=== PATIENT | male | born 1940 | race Caucasian/White ===

== ENCOUNTER 2016-12-07 00:31 | Inpatient (IN) | payer MEDICARE ==
[~2016-12-07] VITALS: Ht 177.8 cm; Wt 96.3 kg
[2016-12-07] VITALS (15 sets, daily range): BP systolic 93–131; BP diastolic 45–82; PULSE 66–88; RESP 14–18; TEMP 97.9–99.1; O2SAT 95–98
--- NOTE | 2016-12-07 01:00 | RADRPT ---
EXAM DATE/TIME: 12/07/2016 00:45 [facility] COMPARISON: No previous studies available for comparison. INDICATIONS : Shortness of breath. MEDICAL HISTORY : None. SURGICAL HISTORY : CABG. ENCOUNTER: Initial ACUITY: 1 day PAIN SCORE: 0/10 LOCATION: Bilateral chest FINDINGS: A single view of the chest demonstrates the lungs to be symmetrically aerated without evidence of mas s, infiltrate or effusion. The cardiomediastinal contours are unremarkable. Sternotomy wires are pre sent.. CONCLUSION: No acute disease. Drew Ellington MD on December 07, 2016 at 0:58 Board Certified Radiologist. This report was verified electronically.
[2016-12-07 01:04] LABS: AUTOMATED NEUTROPHIL # 10.7 TH/MM3 (1.8-7.7); BASOPHIL % 0.2 % (0.0-2.0); EOSINOPHIL % 0.2 % (0.0-4.0); HEMATOCRIT 45.4 % (39.0-51.0); HEMO FLAGS DIFF FINAL; LYMPH % 9.2 % (9.0-44.0); LYMPHOCYTE # 1.1 TH/MM3 (1.0-4.8); MEAN CELL VOLUME 91.2 FL (80.0-100.0); NEUT % 87.4 % (16.0-70.0); PLATELET COUNT 171 TH/MM3 (150-450); RED BLOOD COUNT 4.98 MIL/MM3 (4.50-5.90); WHITE BLOOD COUNT 12.2 TH/MM3 (4.0-11.0)
[2016-12-07 01:33] LABS: APTT (PATIENT) 22.6 SEC (24.3-30.1); PROTHROMBIN TIME - PATIENT 11.6 SEC (9.8-11.6)
[2016-12-07 01:36] LABS: ALKALINE PHOSPHATASE 62 U/L (45-117); ALT (GPT) 126 U/L (12-78); ANION GAP 14 MEQ/L (5-15); AST (GOT) 101 U/L (15-37); BICARBONATE 20.3 MEQ/L (21.0-32.0); BLOOD UREA NITROGEN 23 MG/DL (7-18); CHLORIDE 100 MEQ/L (98-107); CREATINE KINASE 197 U/L (39-308); GLOMERULAR FILTRATION RATE 41 ML/MIN (>89); INDIRECT BILIRUBIN 0.7 MG/DL (0.0-0.8); MAGNESIUM 1.7 MG/DL (1.5-2.5); POTASSIUM 4.7 MEQ/L (3.5-5.1); SODIUM (NA) 134 MEQ/L (136-145)
[2016-12-07 01:53] LABS: CKMB 6.2 NG/ML (0.5-3.6)
[2016-12-07] MEDS ORDERED: SODIUM CHLOR 0.9% 1000 ML INJ 1,000 ML IV ONE (02:00)
[2016-12-07] MEDS ORDERED: IODIXANOL 320 MG/ML 10 ML VIAL (for Rad CT) IV ONE (02:20)
[2016-12-07] MEDS ORDERED: METFORMIN HOLD POST IV CONTRAST XX SCH (02:30)
--- NOTE | 2016-12-07 02:58 | RADRPT ---
EXAM DATE/TIME: 12/07/2016 02:10 [facility] COMPARISON: No previous studies available for comparison. INDICATIONS : Near syncope with abdominal pain. IV CONTRAST: 75 cc Visipaque (iodixanol) IV RADIATION DOSE: 10.57 CTDIvol (mGy) MEDICAL HISTORY : None SURGICAL HISTORY : None. ENCOUNTER: Initial ACUITY: 1 day PAIN SCALE: 4/10 LOCATION: abdomen TECHNIQUE: Volumetric scanning was performed using a multi-row detector CT scanner. The data was post processed with a variety of visualization algorithms including full volume maximum intensity projection, multi -planar sliding thin slab reformation, curved planar reformation, and surface rendering techniques. Using automated exposure control and adjustment of the mA and/or kV according to patient size, radiat ion dose was kept as low as reasonably achievable to obtain optimal diagnostic quality images. FINDINGS: LUNGS: There is no consolidation or pneumothorax. No concerning pulmonary nodule is visualized. No pleural fluid is present. MEDIASTINUM: No abnormally enlarged lymph nodes by CT criteria. No axillary or hilar abnormalities are identified. ABDOMEN: The liver and spleen are free of focal defects. The gallbladder and pancreas demonstrate no abnormali ty. The adrenal glands are normal. The kidneys demonstrate no evidence of solid renal mass or hydrone phrosis. No free fluid or abdominal masses are identified. No para-aortic adenopathy is seen. PELVIS: No evidence of free fluid or pelvic mass. No abnormally enlarged inguinal or retroperitoneal lymph no noah are present. The bladder is unremarkable. THORACIC AORTA: The thoracic aortic root is normal with normal branching of the great vessels. There is no evidence of aneurysm or dissection. ABDOMINAL AORTA: The aorta is normal in caliber without aneurysm or dissection. The renal arteries are patent bilater ally. The proximal celiac and superior mesenteric arteries are patent and normal in diameter. PELVIC VESSELS: The internal iliac and external iliac vessels are patent without aneurysm or stenosis. CONCLUSION: Mild atherosclerotic changes most prominent in the abdominal aorta. No evidence of aneurysm, dissecti on or other acute vascular process. Drew Ellington MD on December 07, 2016 at 2:51 Board Certified Radiologist. This report was verified electronically.
[2016-12-07] MEDS ORDERED: ASPIRIN 81 MG CHEW TAB CHEW ONE (03:15)
[2016-12-07] MEDS ORDERED: HEPARIN SODIUM - IV 10,000 UNITS/10 ML VIAL IV ONE (03:45)
--- NOTE | 2016-12-07 04:14 | PD ---
HPI Chief Complaint: Abdominal Pain Time Seen by Provider: 00:34 Travel History International Travel<30 days: No Contact w/Intl Traveler<30days: No Traveled to known affect area: No History of Present Illness HPI Patient is a 76 year old male who comes in after a syncopal episode. He says he was feeling in his usual state of health all day. He went to dinner and when he came back, he began to feel unwell. He says he felt lower abdominal pain. He tried to get to the bathroom, but he says his legs gave out and he was unable to get up. He says he passed out and had a bowel movement in his bed. He says he then became very diaphoretic. His called and he was brought in by EMS. He says he never had any chest pain. He denies fever or chills. PFSH Past Medical History Cardiovascular Problems: Yes Chest Pain: Yes Diabetes: Yes Past Surgical History Coronary Artery Bypass Graft: Yes Social History Tobacco Use: No Allergies-Medications (Allergen,Severity, Reaction): Coded Allergies: No Known Allergies (Unverified , 12/07/16) Reported Meds & Prescriptions Reported Meds & Active Scripts Active Reported [Levocetirzine Dihcl] 5 Mg PO DAILY Glimepiride 2 Mg Tab 2 Mg PO DAILY Take with breakfast or first main meal Omeprazole 20 Mg Tab 20 Mg PO DAILY Losartan (Losartan Potassium) 25 Mg Tab 25 Mg PO DAILY Metformin (Metformin HCl) 500 Mg Tab 500 Mg PO BIDPC With meals Atorvastatin (Atorvastatin Calcium) 20 Mg Tab 20 Mg PO HS Aspirin 81 Mg Chew 81 Mg CHEW DAILY Review of Systems Except as stated in HPI: all other systems reviewed are Neg General / Constitutional: No: Fever, Chills Cardiovascular: No: Chest Pain or Discomfort Respiratory: Positive: Shortness of Breath Gastrointestinal: Positive: Nausea, Vomiting, Abdominal Pain Genitourinary: No: Dysuria Skin: No Change in Pigmentation Neurologic: Positive: Syncope Physical Exam Narrative GENERAL: Awake and alert, in no acute distress. SKIN: Warm and diaphoretic. HEAD: Atraumatic. Normocephalic. EYES: Pupils equal and round. No scleral icterus. ENT: Mucous membranes pink and moist. NECK: Trachea midline. No JVD. CARDIOVASCULAR: Regular rate and rhythm. No murmur appreciated. RESPIRATORY: No accessory muscle use. Clear to auscultation. Breath sounds equal bilaterally. GASTROINTESTINAL: Abdomen soft, non-tender, nondistended. MUSCULOSKELETAL: No obvious deformities. No clubbing. No cyanosis. No edema. NEUROLOGICAL: Awake and alert. No obvious cranial nerve deficits. Motor grossly within normal limits. Normal speech. PSYCHIATRIC: Appropriate mood and affect; insight and judgment normal. Data Data Last Documented VS Vital Signs Date Time Temp Pulse Resp B/P Pulse Ox O2 Delivery O2 Flow Rate FiO2 12/07/16 02:56 85 18 131/65 98 Room Air 12/07/16 00:36 2 12/07/16 00:35 97.9 Orders Basic Metabolic Panel (Bmp) (12/07/16 00:34) Ckmb (Isoenzyme) Profile (12/07/16 00:34) Complete Blood Count With Diff (12/07/16 00:34) Magnesium (Mg) (12/07/16 00:34) Prothrombin Time / Inr (Pt) (12/07/16 00:34) Act Partial Throm Time (Ptt) (12/07/16 00:34) Troponin I (12/07/16 00:34) Chest, Single Ap (12/07/16 00:34) Ecg Monitoring (12/07/16 00:34) Bilateral Bp Monitoring (12/07/16 00:34) Iv Access Insert/Monitor (12/07/16 00:34) Oximetry (12/07/16 00:34) Oxygen Administration (12/07/16 00:34) Cta Thor Abd Aorta W Iv C W3d (12/07/16 00:34) Hepatic Functional Panel (12/07/16 00:34) CKMB (12/07/16 00:35) CKMB% (12/07/16 00:35) Sodium Chlor 0.9% 1000 Ml Inj (Ns 1000 M (12/07/16 02:00) Iodixanol 320 Inj (Rad Ct) (Visipaque 32 (12/07/16 02:20) Aspirin Chew (Aspirin Chew) (12/07/16 03:15) Heparin Infusion DAI.Q1H (12/07/16 03:08) Heparin Inj (Heparin Inj) (12/07/16 09:15) Heparin Inj (Heparin Inj) (12/07/16 09:15) Heparin-D5w Inj (Heparin-D5w Inj) (12/07/16 03:15) Cbc No Diff, Includes Plts (12/10/16 06:00) Act Partial Throm Time (Ptt) (12/07/16 10:08) Occult Blood (Hemoccult) Stool (12/07/16 03:08) Heparin Inj (Heparin Inj) (12/07/16 03:45) Admit Order (Ed Use Only) (12/07/16 ) Insulin Human Regular Inj (Novolin R Inj (12/07/16 04:15) Labs Laboratory Tests Test 12/07/16 00:35 White Blood Count 12.2 TH/MM3 Red Blood Count 4.98 MIL/MM3 Hemoglobin 15.4 GM/DL Hematocrit 45.4 % Mean Corpuscular Volume 91.2 FL Mean Corpuscular Hemoglobin 31.0 PG Mean Corpuscular Hemoglobin 34.0 % Concent Red Cell Distribution Width 14.0 % Platelet Count 171 TH/MM3 Mean Platelet Volume 9.3 FL Neutrophils (%) (Auto) 87.4 % Lymphocytes (%) (Auto) 9.2 % Monocytes (%) (Auto) 3.0 % Eosinophils (%) (Auto) 0.2 % Basophils (%) (Auto) 0.2 % Neutrophils # (Auto) 10.7 TH/MM3 Lymphocytes # (Auto) 1.1 TH/MM3 Monocytes # (Auto) 0.4 TH/MM3 Eosinophils # (Auto) 0.0 TH/MM3 Basophils # (Auto) 0.0 TH/MM3 CBC Comment DIFF FINAL Differential Comment Prothrombin Time 11.6 SEC Prothromb Time International 1.0 RATIO Ratio Activated Partial 22.6 SEC Thromboplast Time Sodium Level 134 MEQ/L Potassium Level 4.7 MEQ/L Chloride Level 100 MEQ/L Carbon Dioxide Level 20.3 MEQ/L Anion Gap 14 MEQ/L Blood Urea Nitrogen 23 MG/DL Creatinine 1.65 MG/DL Estimat Glomerular Filtration 41 ML/MIN Rate Random Glucose 461 MG/DL Calcium Level 8.9 MG/DL Magnesium Level 1.7 MG/DL Total Bilirubin 1.0 MG/DL Direct Bilirubin 0.3 MG/DL Indirect Bilirubin 0.7 MG/DL Aspartate Amino Transf 101 U/L (AST/SGOT) Alanine Aminotransferase 126 U/L (ALT/SGPT) Alkaline Phosphatase 62 U/L Total Creatine Kinase 197 U/L Creatine Kinase MB 6.2 NG/ML Troponin I 0.21 NG/ML Total Protein 6.7 GM/DL Albumin 3.9 GM/DL MDM Medical Decision Making Medical Screen Exam Complete: Yes Emergency Medical Condition: Yes Interpretation(s) ECG shows no sinus rhythm with occasional PVCs. No ST elevation or depression. Differential Diagnosis ACS versus NSTEMI versus STEMI versus electrolyte abnormality versus dissection Narrative Course Patient is a 76-year-old male who comes in after syncopal episode and abdominal pain. Exam shows patient is diaphoretic, abdomen is soft and nontender. IV established, labs sent. Patient connected to the court recording monitor. Labs sent. Labs show an elevated troponin. Glucose is elevated. Patient given IV fluids and insulin. CTA shows no evidence of dissection. Patient given aspirin and started on heparin. Dr. Cabral consult it for cardiology. Patient admitted for further management. Diagnosis Primary Impression: NSTEMI (non-ST elevated myocardial infarction) Admitting Information Admitting Physician Requests: Admit Elidia Martin MD Dec 07, 2016 04:14
[2016-12-07] MEDS ORDERED: ONDANSETRON HCL 4 MG/2 ML VIAL IVP PRN (04:15)
[2016-12-07] MEDS ORDERED: INSULIN HUMAN REGULAR 1,000 UNITS/10 ML VIAL SQ ONE (04:15)
[2016-12-07] MEDS ORDERED: ACETAMINOPHEN 325 MG TAB PO PRN (04:15)
[2016-12-07] MEDS ORDERED: GLUCAGON 1 MG/ML VIAL OTHER PRN (04:15)
[2016-12-07] MEDS ORDERED: DEXTROSE 50% IN WATER 50 ML VIAL(D50) IV PUSH PRN (04:15)
[2016-12-07] MEDS ORDERED: ACETAMINOPHEN/HYDROcodone 325 MG/5 MG TAB PO PRN (04:15)
[2016-12-07] MEDS ORDERED: BISACODYL 10 MG SUPP PR PRN (04:15)
[2016-12-07] MEDS ORDERED: MORPHINE SULFATE 4 MG/ML INJ IV PRN (04:15)
[2016-12-07] MEDS ORDERED: SODIUM CHLORIDE 0.9% FLUSH 5 ML FLUSH FLUSH PRN (04:15)
[2016-12-07] MEDS: HEPARIN-D5W INJ 250 ML IV SCH (04:25)
[2016-12-07] MEDS ORDERED: PILL SPLITTER OTHER PRN (04:30)
[2016-12-07] MEDS ORDERED: ATOR20TA15 PO (04:36)
[2016-12-07] MEDS ORDERED: METF500T PO ×2 (04:36)
[2016-12-07] MEDS ORDERED: LOSA25TA PO (04:36)
[2016-12-07] MEDS ORDERED: ASPI81CH CHEW (04:36)
[2016-12-07] MEDS ORDERED: OMEP20TA PO (04:36)
[2016-12-07] MEDS ORDERED: LEVOTAB PO (04:36)
[2016-12-07] MEDS ORDERED: LEVOCETIRIZINE PO (04:43)
[2016-12-07] MEDS ORDERED: GLIM2TAB PO (04:43)
--- NOTE | 2016-12-07 05:17 | HHI.HP ---
[facility] No Primary Care Physician Admission Diagnosis NSTEMI Diagnoses: (1) NSTEMI (non-ST elevated myocardial infarction) Diagnosis: Principal (2) Renal insufficiency Diagnosis: Principal (3) DM (diabetes mellitus) Diagnosis: Principal Travel History International Travel<30 Days: No Contact w/Intl Traveler <30 Da: No Traveled to Known Affected Are: No History of Present Illness This is a 76-year-old male with a PMH of HTN, Hyperlipidemia and DM who is brought to the ER by EMS after syncopal episode. Pt had been lying in bed when he had acute chest pain, diaphoresis and syncopal event. Apparently had fecal incontinence, however no convulsions noted. On arrival, BP 129/82, HR 88, O2 sat 98% on RA, Afebrile. WBC 12.2. Creatinine 1.65, no previous labs for comparison. BS 461. AST 101, ALT 126. Troponin 0.21. CXR w/ no acute findings. CTA Aorta negative for dissection or aneurysm. Dr. Cabral consulted by ER physician, recommendation for Heparin gtt, will evaluate in am. Review of Systems Except as stated in HPI: all other systems reviewed are Neg ROS: 14 point review of systems otherwise negative. Past Family Social History Past Medical History PMH: HTN, Hyperlipidemia and DM Past Surgical History PAST SURGICAL HISTORY: None Allergies: Coded Allergies: No Known Allergies (Unverified , 12/07/16) Family History PAST FAMILY HISTORY: Reviewed, positive for DM Social History PAST SOCIAL HISTORY: Negative for alcohol, tobacco or drugs. Physical Exam Vital Signs Vital Signs Date Time Temp Pulse Resp B/P Pulse Ox O2 Delivery O2 Flow Rate FiO2 12/07/16 05:02 77 18 111/68 98 Room Air 12/07/16 02:56 85 18 131/65 98 Room Air 12/07/16 00:36 99 Nasal Cannula 2 12/07/16 00:35 97.9 88 18 129/82 98 Room Air Physical Exam PE: GENERAL: Elderly male in no acute distress. HEENT: PERRLA, EOMI. No scleral icterus or conjunctival pallor. No lid lag or facial droop. CARDIOVASCULAR: Regular rate and rhythm. No obvious murmurs to auscultation. No chest tenderness to palpation. RESPIRATORY: No obvious rhonchi or wheezing. Clear to auscultation. Breath sounds equal bilaterally. GASTROINTESTINAL: Abdomen soft, non-tender, nondistended. BS normal. MUSCULOSKELETAL: Extremities without clubbing, cyanosis, or edema. No obvious deformities. NEUROLOGICAL: Awake, alert and oriented x4. No focal neurologic deficits. Moving both upper and lower extremities spontaneously. Laboratory Laboratory Tests Test 12/07/16 00:35 White Blood Count 12.2 Red Blood Count 4.98 Hemoglobin 15.4 Hematocrit 45.4 Mean Corpuscular Volume 91.2 Mean Corpuscular Hemoglobin 31.0 Mean Corpuscular Hemoglobin 34.0 Concent Red Cell Distribution Width 14.0 Platelet Count 171 Mean Platelet Volume 9.3 Neutrophils (%) (Auto) 87.4 Lymphocytes (%) (Auto) 9.2 Monocytes (%) (Auto) 3.0 Eosinophils (%) (Auto) 0.2 Basophils (%) (Auto) 0.2 Neutrophils # (Auto) 10.7 Lymphocytes # (Auto) 1.1 Monocytes # (Auto) 0.4 Eosinophils # (Auto) 0.0 Basophils # (Auto) 0.0 CBC Comment DIFF FINAL Differential Comment Prothrombin Time 11.6 Prothromb Time International 1.0 Ratio Activated Partial 22.6 Thromboplast Time Sodium Level 134 Potassium Level 4.7 Chloride Level 100 Carbon Dioxide Level 20.3 Anion Gap 14 Blood Urea Nitrogen 23 Creatinine 1.65 Estimat Glomerular Filtration 41 Rate Random Glucose 461 Calcium Level 8.9 Magnesium Level 1.7 Total Bilirubin 1.0 Direct Bilirubin 0.3 Indirect Bilirubin 0.7 Aspartate Amino Transf 101 (AST/SGOT) Alanine Aminotransferase 126 (ALT/SGPT) Alkaline Phosphatase 62 Total Creatine Kinase 197 Creatine Kinase MB 6.2 Troponin I 0.21 Total Protein 6.7 Albumin 3.9 Result Diagram: 12/07/163412/07/1634 Assessment and Plan Problem List: (1) NSTEMI (non-ST elevated myocardial infarction) ICD Code: I21.4 Status: Acute (2) Renal insufficiency ICD Code: N28.9 Status: Acute (3) DM (diabetes mellitus) ICD Code: E11.9 Status: Acute Assessment and Plan A/P: 1. NSTEMI: acute episode of chest pain, diaphoresis, syncope. Trop 0.21, EKG w/ no acute ischemia. Admit to [facility] for further cardiac evaluation, check serial cardiac enzymes, ASA, Statin, B-Thaddeus. Dr. Cabral consulted by ER physician, started on Heparin gtt and will evaluate in am. Currently chest pain free. Morphine/NTG prn. 2. Renal Insufficiency: Creatinine 1.65, no previous labs for comparison. Check U/a, IVF, repeat labs in am. 3. DM: Sliding scale w/ Accu-Cheks. Hold Metformin in light of renal insufficiency and possible cardiac intervention. 4. DVT Prophylaxis: Heparin gtt 5. Social work for d/c planning as needed. 6. Case discussed w/ ER physician at length. Susu Paredes MD Dec 07, 2016 05:17
[2016-12-07] MEDS: SODIUM CHLOR 0.9% 1000 ML INJ 1,000 ML IV SCH ×2 (06:00→17:18)
[2016-12-07 06:15] LABS: BLOOD, URINE NEG (NEG); COMMENT (UR) CULT NOT INDICATED; CULTURE IF INDICATED CULT NOT INDICATED; GLUCOSE,URINE 1000 mg/dL (NEG); HYALINE CAST, URINE 1 /lpf (RARE); KETONE, URINE 10 mg/dL (NEG); MUCUS URINE FEW /lpf (OCC); NITRITE,URINE NEG (NEG); PH, URINE 5.5 (5.0-8.5); SQUAMOUS EPITHELIAL CELL URINE 1 /hpf (0-5); URINE COLOR YELLOW (YELLW/STRAW)
[2016-12-07 07:54] LABS: AUTOMATED NEUTROPHIL # 5.9 TH/MM3 (1.8-7.7); BASOPHIL # 0.1 TH/MM3 (0-0.2); BASOPHIL % 0.6 % (0.0-2.0); EOSINOPHIL # 0.1 TH/MM3 (0-0.4); EOSINOPHIL % 0.8 % (0.0-4.0); HEMATOCRIT 42.3 % (39.0-51.0); HEMO FLAGS DIFF FINAL; LYMPH % 25.4 % (9.0-44.0); LYMPHOCYTE # 2.4 TH/MM3 (1.0-4.8); MEAN CELL VOLUME 88.7 FL (80.0-100.0); MEAN CORPUSCULAR HEMOGLOBIN 30.7 PG (27.0-34.0); MEAN CORPUSCULAR HGB CONC 34.6 % (32.0-36.0); MONO % 9.6 % (0.0-8.0); NEUT % 63.6 % (16.0-70.0); PLATELET COUNT 159 TH/MM3 (150-450); RED BLOOD COUNT 4.77 MIL/MM3 (4.50-5.90); RED CELL DISTRIBUTION WIDTH 13.7 % (11.6-17.2); WHITE BLOOD COUNT 9.3 TH/MM3 (4.0-11.0)
[2016-12-07 08:13] LABS: ALKALINE PHOSPHATASE 60 U/L (45-117); ALT (GPT) 104 U/L (12-78); ANION GAP 10 MEQ/L (5-15); AST (GOT) 54 U/L (15-37); BICARBONATE 23.4 MEQ/L (21.0-32.0); BLOOD UREA NITROGEN 20 MG/DL (7-18); CHLORIDE 107 MEQ/L (98-107); GLOMERULAR FILTRATION RATE 63 ML/MIN (>89); HDL CHOLESTEROL 44.6 MG/DL (40.0-60.0); LDL CHOLESTEROL 80 MG/DL (0-99); SODIUM (NA) 140 MEQ/L (136-145); TOTAL BILIRUBIN ADULT 0.5 MG/DL (0.2-1.0)
[2016-12-07] MEDS: INSULIN ASPART SUPPLEMENTAL SCALE SQ SCH ×4 (08:47→21:00)
[2016-12-07] MEDS: SODIUM CHLORIDE 0.9% FLUSH 5 ML FLUSH FLUSH SCH ×2 (08:48→21:00)
[2016-12-07] MEDS: PRAVASTATIN SOD 40 MG TAB PO SCH (08:49)
[2016-12-07] MEDS: METOPROLOL TARTRATE 25 MG TAB PO SCH ×2 (08:49→21:01)
[2016-12-07] MEDS ORDERED: HEPARIN SODIUM - IV 10,000 UNITS/10 ML VIAL IV PRN ×2 (09:15)
[2016-12-07 11:35] LABS: APTT (PATIENT) 40.8 SEC (24.3-30.1)
--- NOTE | 2016-12-07 13:12 | MB ---
cc: DINORA CABRAL MD DATE OF CONSULTATION: 12/07/2016 REASON FOR CONSULTATION Syncope with elevated troponin. HISTORY OF PRESENT ILLNESS Mr. Lamas is a 76-year-old man who does have a prior history of CABG, hypertension, hyperlipidemia and diabetes. He is visiting from [place] and had been feeling well. He specifically denies any chest pain, jaw pain or dyspnea on exertion. He was out playing golf yesterday and subsequently went out to dinner. After dinner he had severe abdominal pain at about 10 p.m. He says he got up to go to the bathroom felt weak and diaphoretic. He felt like he was going to pass out and remembers falling back in bed. When he regained consciousness he had had a bowel movement in the bed and remained diaphoretic. He called for his and subsequently 911. He notes that he did his blood sugar at home and it was quite high and then when checked by EMS it was even higher. He again reiterated he did not have any cardiac complaints. This is noted to be different from his H&P. The patient remains pain free at this time. Of note, the patient reports he had some dyspnea on exertion last summer. This was apparently associated with an indeterminate troponin and he underwent subsequent nuclear stress testing followed by catheterization. He reports that he was medically managed afterwards. PAST MEDICAL HISTORY Significant for - 1. Previous CABG. 2. Hypertension. 3. Hyperlipidemia. 4. Diabetes. OUTPATIENT MEDICATIONS 1. Aspirin. 2. Glimepiride. 3. Omeprazole. 4. Atorvastatin. 5. Metformin. 6. Losartan. PHYSICAL EXAMINATION VITAL SIGNS: 98.1, 74, 16, 93/45. GENERAL: He is an obese man who is in no apparent distress. NECK: His neck is free from JVD. LUNGS: The lungs are bilaterally clear to auscultation. CARDIOVASCULAR: On cardiovascular examination, he has a normal S1 and S2. I did not appreciate any murmurs, rubs or gallops. ABDOMEN: The abdomen is soft. EXTREMITIES: The extremities are free from edema. EKG shows normal sinus rhythm with a first-degree AV block and nonspecific ST-T wave changes with multifocal PVCs. LABORATORY VALUES Significant for an initial BUN of 23 with a creatinine of 1.6. Today it is 20 with a creatinine of 1.1. His initial random glucose was 461. Troponins are 0.21/1.12. His total CK is 197 with an MB of 6.2. LDL is 80. IMAGING STUDIES Aortic CTA shows mild atherosclerotic changes without evidence of aneurysm or dissection. Chest x-ray shows no acute changes. IMPRESSIONS Syncope - The patient gives a story that is most consistent with a vasovagal episode. He has not had any of his typical cardiac complaints. His telemetry is unremarkable. It is possible that this may have been exacerbated by both his dehydration and hyperglycemia. I would continue observation at this point in this regard. Non-ST elevation UT - At this point, it is not clear if it is a primary or a secondary UT. He did not have any chest, jaw pain or FITZGERALD which is his more classic presentation. He denied that several times to me. It is possible with his underlying ischemic burden that this may have been a secondary UT again related to his profound dehydration and hyperglycemia. In any case, he has had a recent cardiac catheterization over the summer and I would like to get a copy of his report prior to deciding on his management. Renal insufficiency - The patient does still appear prerenal and this may have also factored in with his initial creatinine of 1.6. Hyperlipidemia - The patient will continue on a statin. Dinora Cabral M.D. ANDREW/BJLuz /12:26 PM /12:36 PM QAMAR
[2016-12-07 15:41] LABS: HEMOGLOBIN A1a 1.1 %; HEMOGLOBIN A1b 2.5 %; HEMOGLOBIN Ao 79.6 %; HEMOGLOBIN LA1C 3.5 %; HEMOGLOBIN P3 6.6 %
[2016-12-07 18:12] LABS: APTT (PATIENT) 35.2 SEC (24.3-30.1)
--- NOTE | 2016-12-07 18:17 | EKG ---
Date Performed: 12/07/2016 Time Performed: 00:31:51 PTAGE: 76 years EKG: Sinus rhythm WITH FIRST DEGREE AV BLOCK WITH FREQUENT VENTRICULAR PREMATURE COMPLEXES BORDERLINE LEFT AXIS DEVIAT ION INCOMPLETE RIGHT BUNDLE BRANCH BLOCK NONSPECIFIC T-WAVE ABNORMALITY ABNORMAL ECG NO PREVIOUS TRACING DOCTOR: Roland Montalvo Interpretating Date/Time 12/07/2016 18:13:13
[2016-12-08] VITALS (25 sets, daily range): BP systolic 123–153; BP diastolic 75–96; PULSE 59–80; RESP 12–16; TEMP 97.7–98.5; O2SAT 97–100
[2016-12-08] MEDS: SODIUM CHLOR 0.9% 1000 ML INJ 1,000 ML IV SCH ×3 (00:12→13:59)
[2016-12-08 01:41] LABS: APTT (PATIENT) 41.6 SEC (24.3-30.1)
[2016-12-08] MEDS: HEPARIN-D5W INJ 250 ML IV SCH (05:06)
[2016-12-08] MEDS: INSULIN ASPART SUPPLEMENTAL SCALE SQ SCH ×4 (07:00→20:54)
[2016-12-08] MEDS: ASPIRIN 325 MG TAB PO SCH (08:10)
[2016-12-08] MEDS: PRAVASTATIN SOD 40 MG TAB PO SCH (08:10)
[2016-12-08] MEDS: METOPROLOL TARTRATE 25 MG TAB PO SCH ×2 (08:10→20:42)
[2016-12-08] MEDS: SODIUM CHLORIDE 0.9% FLUSH 5 ML FLUSH FLUSH SCH ×2 (08:11→20:42)
[2016-12-08 09:58] LABS: APTT (PATIENT) 37.4 SEC (24.3-30.1)
--- NOTE | 2016-12-08 11:02 | HHI.PR ---
Subjective Remarks Follow-up non-ST elevation [place] 12/08/16-patient seen and examined, free of chest pain 2 days. No acute event overnight. Objective Vitals Vital Signs Date Time Temp Pulse Resp B/P Pulse Ox O2 Delivery O2 Flow Rate FiO2 12/08/16 08:00 97.8 69 16 153/96 98 12/08/16 07:00 80 12/08/16 06:00 64 12/08/16 05:00 74 12/08/16 04:00 62 12/08/16 03:00 64 12/08/16 03:00 98.5 66 14 139/84 97 12/08/16 02:00 62 12/08/16 01:00 64 12/08/16 00:00 62 12/07/16 23:00 67 12/07/16 23:00 98.2 66 16 116/80 95 12/07/16 22:00 68 12/07/16 21:00 72 12/07/16 20:00 72 12/07/16 19:00 98.2 74 14 109/70 97 12/07/16 19:00 72 12/07/16 18:00 70 12/07/16 17:00 66 12/07/16 16:09 68 12/07/16 15:00 74 12/07/16 15:00 99.1 74 16 119/77 95 12/07/16 11:00 98.1 74 16 93/45 95 12/07/16 11:00 74 I/O 12/07/16 12/07/16 12/07/16 12/08/16 12/08/16 12/08/16 07:00 15:00 23:00 07:00 15:00 23:00 Intake Total 1706 ml 1340 ml Output Total 600 ml 1050 ml Balance 1106 ml 290 ml Intake Oral 600 ml 240 ml IV Total 1106 ml 1100 ml Output Urine Total 600 ml 1050 ml # Bowel Movements 1 0 Result Diagram: 12/07/1672912/07/16729 Imaging Last Impressions Chest X-Ray 12/07/1633 Signed Impressions: Service Date/Time: Wednesday, December 07, 2016 00:45 - CONCLUSION: No acute disease. Drew Ellington MD Aorta CTA 12/07/1633 Signed Impressions: Service Date/Time: Wednesday, December 07, 2016 02:10 - CONCLUSION: Mild atherosclerotic changes most prominent in the abdominal aorta. No evidence of aneurysm, dissection or other acute vascular process. Drew Elilngton MD Objective Remarks GENERAL: NAD SKIN: Warm and dry. HEAD: Normocephalic. EYES: No scleral icterus. No injection or drainage. NECK: Supple, trachea midline. No JVD or lymphadenopathy. CARDIOVASCULAR: Regular rate and rhythm without murmurs, gallops, or rubs. RESPIRATORY: Breath sounds equal bilaterally. No accessory muscle use. GASTROINTESTINAL: Abdomen soft, non-tender, nondistended. MUSCULOSKELETAL: No cyanosis, or edema. BACK: Nontender without obvious deformity. No CVA tenderness. A/P Problem List: (1) NSTEMI (non-ST elevated myocardial infarction) ICD Code: I21.4 Status: Acute (2) Renal insufficiency ICD Code: N28.9 Status: Acute (3) DM (diabetes mellitus) ICD Code: E11.9 Status: Acute Assessment and Plan 76-year-old man with 1. NSTEMI: acute episode of chest pain, diaphoresis, syncope. Aorta CTA with No evidence of aneurysm, dissection .Currently on heparin drip, ASA, Statin, B- Thaddeus and Morphine/NTG prn pending further recommendation from Dr. Cabral . 2-D echo pending Awaiting from medical records 2. Renal Insufficiency: Improving renal indices with gentle IVF, repeat labs in am. Continue to hold all nephrotoxic drugs 3. DM: A1c 7.7 and Good glycemic control with Sliding scale w/ Accu-Cheks. Hold Metformin and glyburide in light of renal insufficiency and possible cardiac intervention. 4. DVT Prophylaxis: Heparin gtt Micah Sanchez MD Dec 08, 2016 11:02
[2016-12-08] MEDS ORDERED: LEVOTAB PO (11:45)
--- NOTE | 2016-12-08 12:02 | PD.CARD.PN ---
Subjective Subjective Remarks Pt without CV complaints Objective Medications Current Medications Medications (Trade) Dose Ordered Sig/Melissa Route Start Time Stop Time Status Last Admin (Heparin Inj) 5,000 units UNSCH PRN IV 12/07/16 09:15 Heparin Sodium (Porcine) 2500 units 2,500 units UNSCH PRN IV 12/07/16 09:15 12/08/16 10:24 Heparin Sodium/ Dextrose 250 ml @ 0 mls/hr TITRATE IV 12/07/16 03:15 12/08/16 05:06 (NS 1000 ml Inj) 1,000 ml @ 100 mls/hr Q10H IV 12/07/16 04:12 12/07/16 17:18 (NS Flush) 2 ml UNSCH PRN FLUSH 12/07/16 04:15 (NS Flush) 2 ml BID FLUSH 12/07/16 09:00 12/08/16 08:11 (Zofran Inj) 4 mg Q6H PRN IVP 12/07/16 04:15 (Dulcolax Supp) 10 mg DAILY PRN [place] 12/07/16 04:15 (Tylenol) 650 mg Q6H PRN PO 12/07/16 04:15 ([place] 5-325 Mg) 1 tab Q4H PRN PO 12/07/16 04:15 (Morphine Inj) 2 mg Q3H PRN IV 12/07/16 04:15 (D50w (Vial) Inj) 25 ml UNSCH PRN IV PUSH 12/07/16 04:15 (Glucagon Inj) 1 mg UNSCH PRN OTHER 12/07/16 04:15 (Lopressor) 12.5 mg Q12HR PO 12/07/16 09:00 12/08/16 08:10 (Pravachol) 40 mg DAILY PO 12/07/16 09:00 12/08/16 08:10 (Pill Splitter) 1 ea UNSCH PRN OTHER 12/07/16 04:30 Miscellaneous Information HOLD METFORMIN FOR... Q24H XX 12/07/16 02:30 12/09/16 02:29 (Aspirin) 325 mg DAILY PO 12/08/16 09:00 12/08/16 08:10 Vital Signs / I&O Vital Signs Date Time Temp Pulse Resp B/P Pulse Ox O2 Delivery O2 Flow Rate FiO2 12/08/16 08:00 97.8 69 16 153/96 98 12/08/16 07:00 80 12/08/16 06:00 64 12/08/16 05:00 74 12/08/16 04:00 62 12/08/16 03:00 64 12/08/16 03:00 98.5 66 14 139/84 97 12/08/16 02:00 62 12/08/16 01:00 64 12/08/16 00:00 62 12/07/16 23:00 67 12/07/16 23:00 98.2 66 16 116/80 95 12/07/16 22:00 68 12/07/16 21:00 72 12/07/16 20:00 72 12/07/16 19:00 98.2 74 14 109/70 97 12/07/16 19:00 72 12/07/16 18:00 70 12/07/16 17:00 66 12/07/16 16:09 68 12/07/16 15:00 74 12/07/16 15:00 99.1 74 16 119/77 95 I/O 12/07/16 12/07/16 12/07/16 12/08/16 12/08/16 12/08/16 07:00 15:00 23:00 07:00 15:00 23:00 Intake Total 1706 ml 1340 ml Output Total 600 ml 1050 ml Balance 1106 ml 290 ml Intake Oral 600 ml 240 ml IV Total 1106 ml 1100 ml Output Urine Total 600 ml 1050 ml # Bowel Movements 1 0 Physical Exam GENERAL: Well developed, well nourished. No acute distress. HEENT: Jugular venous pressure is normal. CHEST: Lungs clear to auscultation bilaterally. Unlabored respiratory effort. CARDIAC: Regular rate and rhythm without S3, S4, or murmur. ABDOMEN: Soft, nontender, no hepatosplenomegaly. Bowel sounds present. EXTREMITIES: No clubbing, cyanosis, or edema. Laboratory Laboratory Tests Test 12/07/16 12/07/16 12/08/16 12/08/16 12:57 17:55 00:55 09:09 Troponin I 1.11 NG/ML Activated Partial 35.2 SEC 41.6 SEC 37.4 SEC Thromboplast Time Assessment and Plan Assessment and Plan Syncope - The patient gives a story that is most consistent with a vasovagal episode. He has not had any of his typical cardiac complaints. His telemetry is unremarkable. It is possible that this may have been exacerbated by both his dehydration and hyperglycemia. I would continue observation at this point in this regard. 12/08/16- no further episodes NSVT- 3, 3 beat episodes last night around 21:00 -on BB, awaiting recent cath Non-ST elevation [place] - At this point, it is not clear if it is a primary or a secondary [place]. He did not have any chest pain or jaw pain which is his more classic presentation. He denied that several times to me. It is possible with his underlying ischemic burden that this may have been a secondary [place] again related to his profound dehydration and hyperglycemia. In any case, he has had a recent cardiac catheterization over the summer and I would like to get a copy of his report prior to deciding on his management. 12/08/16- Pt is asymptomatic, continue present meds -obtained prior record of CABG obtained, but not cath from Jul -try again to get records -check ECHO Renal insufficiency - Hyperlipidemia - The patient will continue on a statin. Antonella Cabral MD Dec 08, 2016 12:02
--- NOTE | 2016-12-08 14:27 | EC ---
Study Study Date:12/08/2016 STUDY CONCLUSIONS SUMMARY - Left ventricle: The cavity size was normal. Wall thickness was normal. Systolic function was moderately reduced. The estimated ejection fraction was in the range of 35% to 40%. Diffuse hypokinesis. - Mitral valve: Mild regurgitation. - Left atrium: The atrium was mildly dilated. - Pulmonary arteries: PA peak pressure: 34mm Hg (S). If LV function is below 40, please consider prescribing an ACEI or ARB or document rationale for non-use. PROCEDURE DATA STUDY STATUS: Elective. Procedure: Transthoracic echocardiography. Image quality was good. Scanning was performed from the parasternal, apical, and subcostal acoustic windows. Study completion: The patient tolerated the procedure well. Transthoracic echocardiography. M-mode, complete 2D, complete spectral Doppler, and color Doppler. Patient status: Inpatient. CARDIAC ANATOMY LEFT VENTRICLE: The cavity size was normal. Wall thickness was normal. Systolic function was moderately reduced. The estimated ejection fraction was in the range of 35% to 40%. Diffuse hypokinesis. AORTIC VALVE: Trileaflet; normal thickness leaflets. Doppler: Transvalvular velocity was within the normal range. There was no stenosis. No regurgitation. AORTA: Aortic root: The aortic root was normal in size. MITRAL VALVE: Mildly thickened leaflets, . Doppler: Transvalvular velocity was within the normal range. There was no evidence for stenosis. Mild regurgitation. LEFT ATRIUM: The atrium was mildly dilated. RIGHT VENTRICLE: The cavity size was normal. Wall thickness was normal. PULMONIC VALVE: Doppler: Transvalvular velocity was within the normal range. There was no evidence for stenosis. No regurgitation. TRICUSPID VALVE: Structurally normal valve. Doppler: Transvalvular velocity was within the normal range. Trace to mild regurgitation. PULMONARY ARTERY: The main pulmonary artery was normal-sized. Systolic pressure was within the normal range. RIGHT ATRIUM: The atrium was normal in size. PERICARDIUM: There was no pericardial effusion. SYSTEMIC VEINS: Inferior vena cava: The vessel was normal in size. BASIC MEASUREMENTS ADULT NORMAL Left ventricle LV internal dimension, ED, chordal level, 48.1 mm 43-52 PLAX LV internal dimension, ES, chordal level, *41 mm 23-38 PLAX Fractional shortening, chordal level, PLAX *15 % >29 LV posterior wall thickness, ED 10.3 mm IVS/LVPW ratio, ED 1.12 <1.3 Ventricular septum Septal thickness, ED 11.5 mm Aortic valve Leaflet separation 24 mm 15-26 Right ventricle RV internal dimension, ED, PLAX 29.2 mm 19-38 BASIC MEASUREMENTS ADULT NORMAL Aortic valve Leaflet separation 24 mm 15-26 Aorta Root diameter, ED 29 mm 20-37 Left atrium Anterior-posterior dimension, ES *55 mm 19-40 LA/aortic root ratio 1.9 DOPPLER MEASUREMENTS ADULT NORMAL Main pulmonary artery Pressure, S *34 mm Hg =30 Mitral valve Peak E-wave velocity 65.2 cm/s Peak A-wave velocity 84.4 cm/s Peak E/A ratio 0.8 Tricuspid valve Regurgitant peak velocity 247 cm/s Peak RV-RA gradient, S 24 mm Hg Maximal regurgitant velocity 247 cm/s Systemic veins Estimated CVP 10 mm Hg Right ventricle RV pressure, S *34 mm Hg <30 LEGEND: Mean values are shown as u=mean value. Asterisk (*) holt values outside specified normal range. Prepared and signed by Antonella Cabral [id number]
[2016-12-09] VITALS (10 sets, daily range): BP systolic 123–147; BP diastolic 87–92; PULSE 54–82; RESP 14–16; TEMP 98; O2SAT 97–98
[2016-12-09 05:03] LABS: BICARBONATE 25.3 MEQ/L (21.0-32.0); POTASSIUM 3.9 MEQ/L (3.5-5.1)
[2016-12-09] MEDS: SODIUM CHLOR 0.9% 1000 ML INJ 1,000 ML IV SCH (06:12)
[2016-12-09] MEDS: INSULIN ASPART SUPPLEMENTAL SCALE SQ SCH (07:00)
[2016-12-09] MEDS: PRAVASTATIN SOD 40 MG TAB PO SCH (08:49)
[2016-12-09] MEDS: METOPROLOL TARTRATE 25 MG TAB PO SCH (08:50)
[2016-12-09] MEDS: ASPIRIN 325 MG TAB PO SCH (08:50)
[2016-12-09] MEDS: SODIUM CHLORIDE 0.9% FLUSH 5 ML FLUSH FLUSH SCH (08:50)
[2016-12-09] MEDS ORDERED: PLAV75TA29 PO (09:32)
[2016-12-09] MEDS ORDERED: CARV3.125 PO (09:32)
--- NOTE | 2016-12-09 09:36 | PD.CARD.PN ---
Subjective Subjective Remarks Pt without CV complaints Objective Medications Current Medications Medications (Trade) Dose Ordered Sig/Melissa Route Start Time Stop Time Status Last Admin (NS 1000 ml Inj) 1,000 ml @ 100 mls/hr Q10H IV 12/07/16 04:12 12/08/16 13:59 (NS Flush) 2 ml UNSCH PRN FLUSH 12/07/16 04:15 (NS Flush) 2 ml BID FLUSH 12/07/16 09:00 12/09/16 08:50 (Zofran Inj) 4 mg Q6H PRN IVP 12/07/16 04:15 (Dulcolax Supp) 10 mg DAILY PRN [place] 12/07/16 04:15 (Tylenol) 650 mg Q6H PRN PO 12/07/16 04:15 ([place] 5-325 Mg) 1 tab Q4H PRN PO 12/07/16 04:15 (Morphine Inj) 2 mg Q3H PRN IV 12/07/16 04:15 (D50w (Vial) Inj) 25 ml UNSCH PRN IV PUSH 12/07/16 04:15 (Glucagon Inj) 1 mg UNSCH PRN OTHER 12/07/16 04:15 (Lopressor) 12.5 mg Q12HR PO 12/07/16 09:00 12/09/16 08:50 (Pravachol) 40 mg DAILY PO 12/07/16 09:00 12/09/16 08:49 (Pill Splitter) 1 ea UNSCH PRN OTHER 12/07/16 04:30 (Aspirin) 325 mg DAILY PO 12/08/16 09:00 12/09/16 08:50 Vital Signs / I&O Vital Signs Date Time Temp Pulse Resp B/P Pulse Ox O2 Delivery O2 Flow Rate FiO2 12/09/16 07:31 98.0 54 16 147/92 98 12/09/16 07:31 54 12/09/16 06:00 54 12/09/16 05:00 54 12/09/16 04:00 56 12/09/16 03:00 98.0 62 14 123/87 97 12/09/16 03:00 54 12/09/16 02:00 68 12/09/16 01:00 60 12/09/16 00:00 56 12/08/16 23:00 59 12/08/16 23:00 97.7 63 12 127/84 97 12/08/16 22:00 60 12/08/16 21:00 62 12/08/16 20:00 64 12/08/16 19:00 80 12/08/16 19:00 97.8 65 12 124/76 97 12/08/16 18:07 67 12/08/16 17:11 60 12/08/16 16:16 62 12/08/16 16:00 98.1 64 16 123/80 99 12/08/16 15:00 64 12/08/16 14:00 80 12/08/16 13:00 70 12/08/16 12:00 64 12/08/16 12:00 97.8 76 16 125/75 100 12/08/16 11:00 64 12/08/16 10:00 64 I/O 12/08/16 12/08/16 12/08/16 12/09/16 12/09/16 12/09/16 07:00 15:00 23:00 07:00 15:00 23:00 Intake Total 1340 ml 2150 ml 1365 ml Output Total 1050 ml 2130 ml 850 ml Balance 290 ml 20 ml 515 ml Intake Oral 240 ml 1100 ml 565 ml IV Total 1100 ml 1050 ml 800 ml Output Urine Total 1050 ml 2130 ml 850 ml # Voids 1 # Bowel Movements 0 1 Physical Exam GENERAL: Well developed, well nourished. No acute distress. HEENT: Jugular venous pressure is normal. CHEST: Lungs clear to auscultation bilaterally. Unlabored respiratory effort. CARDIAC: Regular rate and rhythm without S3, S4, or murmur. ABDOMEN: Soft, nontender, no hepatosplenomegaly. Bowel sounds present. EXTREMITIES: No clubbing, cyanosis, or edema. Laboratory Laboratory Tests Test 12/09/16 03:20 Sodium Level 144 MEQ/L Potassium Level 3.9 MEQ/L Chloride Level 110 MEQ/L Carbon Dioxide Level 25.3 MEQ/L Anion Gap 9 MEQ/L Blood Urea Nitrogen 15 MG/DL Creatinine 0.81 MG/DL Estimat Glomerular Filtration 93 ML/MIN Rate Random Glucose 141 MG/DL Calcium Level 8.3 MG/DL Assessment and Plan Assessment and Plan Syncope - The patient gives a story that is most consistent with a vasovagal episode. He has not had any of his typical cardiac complaints. His telemetry is unremarkable. It is possible that this may have been exacerbated by both his dehydration and hyperglycemia. I would continue observation at this point in this regard. 12/09/16- no further episodes; keep PO fluids around 64 oz a day NSVT- 3, 3 beat episodes last night around 21:00 12/07 -no further episodes Cardiomyopathy- on BB, -restart ARB today as BP was a bit low prior (and renal insufficiency) Non-ST elevation [place] - At this point, it is not clear if it is a primary or a secondary [place]. He did not have any chest pain or jaw pain which is his more classic presentation. He denied that several times to me. It is possible with his underlying ischemic burden that this may have been a secondary [place] again related to his profound dehydration and hyperglycemia. In any case, he has had a recent cardiac catheterization over the summer and I would like to get a copy of his report prior to deciding on his management. 12/08/16- Pt is asymptomatic, continue present meds -obtained prior record of CABG obtained, but not cath from Jul -try again to get records 12/09/16- asymptomatic, asa. add plavix -cath from Jul 2017 shows patent bypass grafts; I did offer cath but he declined which is reasonable given his scenario -ok for d/c Renal insufficiency - resolved with hydration Hyperlipidemia - The patient will continue on a statin. Antonella Cabral MD Dec 09, 2016 09:36
--- NOTE | 2016-12-09 09:41 | HHI.DS ---
Discharge Summary Admission Date Dec 07, 2016 at 4:16 am Discharge Date: Dec 09, 2016 Admitting Diagnosis NSTEMI (1) NSTEMI (non-ST elevated myocardial infarction) ICD Code: I21.4 Diagnosis: Principal (2) DM (diabetes mellitus) ICD Code: E11.9 (3) ALEXANDER (acute kidney injury) ICD Code: N17.9 Diagnosis: Principal Procedures 12/08/2016 - Left ventricle: The cavity size was normal. Wall thickness was normal. Systolic function was moderately reduced. The estimated ejection fraction was in the range of 35% to 40%. Diffuse hypokinesis. - Mitral valve: Mild regurgitation. - Left atrium: The atrium was mildly dilated. - Pulmonary arteries: PA peak pressure: 34mm Hg (S). Brief History - From Admission This is a 76-year-old male with a PMH of HTN, Hyperlipidemia and DM who is brought to the ER by EMS after syncopal episode. Pt had been lying in bed when he had acute chest pain, diaphoresis and syncopal event. Apparently had fecal incontinence, however no convulsions noted. On arrival, BP 129/82, HR 88, O2 sat 98% on RA, Afebrile. WBC 12.2. Creatinine 1.65, no previous labs for comparison. BS 461. AST 101, ALT 126. Troponin 0.21. CXR w/ no acute findings. CTA Aorta negative for dissection or aneurysm. Dr. Cabral consulted by ER physician, recommendation for Heparin gtt, will evaluate in am. CBC/BMP: 12/07/16 0730 12/09/16 0320 Significant Findings Laboratory Tests Test 12/07/16 12/07/16 12/07/16 12/07/16 00:35 05:40 07:30 11:00 White Blood Count 12.2 TH/MM3 (4.0-11.0) Neutrophils (%) (Auto) 87.4 % (16.0-70.0) Neutrophils # (Auto) 10.7 TH/MM3 (1.8-7.7) Activated Partial 22.6 SEC 40.8 SEC Thromboplast Time (24.3-30.1) (24.3-30.1) Sodium Level 134 MEQ/L (136-145) Carbon Dioxide Level 20.3 MEQ/L (21.0-32.0) Blood Urea Nitrogen 23 MG/DL (7-18) 20 MG/DL (7-18) Creatinine 1.65 MG/DL (0.60-1.30) Estimat Glomerular Filtration 41 ML/MIN (>89) 63 ML/MIN (>89) Rate Random Glucose 461 MG/DL 271 MG/DL (74-106) (74-106) Direct Bilirubin 0.3 MG/DL (0.0-0.2) Aspartate Amino Transf 101 U/L (15-37) 54 U/L (15-37) (AST/SGOT) Alanine Aminotransferase 126 U/L (12-78) 104 U/L (12-78) (ALT/SGPT) Creatine Kinase MB 6.2 NG/ML (0.5-3.6) Troponin I 0.21 NG/ML 1.12 NG/ML (0.02-0.05) (0.02-0.05) Urine Glucose (UA) 1000 mg/dL (NEG) Urine Ketones 10 mg/dL (NEG) Urine Mucus FEW /lpf (OCC) Monocytes (%) (Auto) 9.6 % (0.0-8.0) Hemoglobin A1c 7.7 % (4.3-6.0) Total Protein 6.0 GM/DL (6.4-8.2) Test 12/07/16 12/07/16 12/08/16 12/08/16 12:57 17:55 00:55 09:09 Troponin I 1.11 NG/ML (0.02-0.05) Activated Partial 35.2 SEC 41.6 SEC 37.4 SEC Thromboplast Time (24.3-30.1) (24.3-30.1) (24.3-30.1) Test 12/09/16 03:20 Chloride Level 110 MEQ/L (98-107) Random Glucose 141 MG/DL (74-106) Calcium Level 8.3 MG/DL (8.5-10.1) Imaging Last Impressions Chest X-Ray 12/07/16 0034 Signed Impressions: Service Date/Time: Wednesday, December 07, 2016 00:45 - CONCLUSION: No acute disease. Drew Ellington MD Aorta CTA 12/07/16 0034 Signed Impressions: Service Date/Time: Wednesday, December 07, 2016 02:10 - CONCLUSION: Mild atherosclerotic changes most prominent in the abdominal aorta. No evidence of aneurysm, dissection or other acute vascular process. Drew Ellington MD PE at Discharge GENERAL: NAD SKIN: Warm and dry. HEAD: Normocephalic. EYES: No scleral icterus. No injection or drainage. NECK: Supple, trachea midline. No JVD or lymphadenopathy. CARDIOVASCULAR: Regular rate and rhythm without murmurs, gallops, or rubs. RESPIRATORY: Breath sounds equal bilaterally. No accessory muscle use. GASTROINTESTINAL: Abdomen soft, non-tender, nondistended. MUSCULOSKELETAL: No cyanosis, or edema. BACK: Nontender without obvious deformity. No CVA tenderness. Pt update on day of discharge Mr. Lamas is doing well. No acute concerns. He ambulated well without any problems. No chest pain, fever, chills. Pt was advised to drink more fluid and less coffee. Hospital Course Mr. Lamas is a 76-year-old male with a PMH of HTN, Hyperlipidemia and DM who is brought to the ER by EMS after syncopal episode. Pt had been lying in bed when he had acute chest pain, diaphoresis and syncopal event. On arrival, BP 129/82, HR 88, O2 sat 98% on RA, Afebrile. WBC 12.2. Creatinine 1.65 blood glucose 461. His troponins were 0.21, 1.12, 1.11. Patient was started on fluid , insulin for diabetes and started on aspirin and statin and beta krishna. Patient was on losartan at home and was held during admission due to acute kidney injury. Cardiology was consulted. After reviewing cardiac catheterization done about 67 months ago at an outside facility, cardiology decided not to proceed with cardiac catheterization. Medical management was recommended. With IV fluid patient's acute kidney injury also resolved. On discharge patient was continued on statin, losartan. We started patient on carvedilol 3.125 mg twice a day and Plavix 75 mg daily. Patient was also instructed to continue taking aspirin 81 mg a day. He was advised to follow-up with Dr. Cabral in 7-10 days. Pt Condition on Discharge: Good Discharge Disposition: Discharge Home Discharge Time: > 30 minutes Discharge Instructions DIET: Follow Instructions for: Heart Healthy Diet, Diabetic Diet Activities you can perform: Regular-No Restrictions Follow up Referrals: Cardiology - 10 Days with Antonella Cabral MD PCP Follow-up - 1 Week New Medications: Carvedilol (Coreg) 3.125 Mg Tab 3.125 MG PO BID Heart #60 Ref 0 TAB Clopidogrel (Plavix) 75 Mg Tab 75 MG PO DAILY Blood Clot Prevention #30 Ref 0 TAB Continued Medications: Aspirin (Aspirin) 81 Mg Chew 81 MG CHEW DAILY Ref 0 TAB Atorvastatin (Atorvastatin) 20 Mg Tab 20 MG PO HS Cholesterol Management #30 Ref 0 TAB Glimepiride (Glimepiride) 2 Mg Tab 2 MG PO DAILY Take with breakfast or first main meal Blood Sugar Management #30 Ref 0 TAB Levocetirizine (Levocetirizine) 5 Mg Tab 5 MG PO DAILY Allergy Management #30 Ref 0 TAB Losartan (Losartan) 25 Mg Tab 25 MG PO DAILY Blood Pressure Management #30 Ref 0 TAB Metformin (Metformin) 500 Mg Tab 500 MG PO BIDPC With meals Blood Sugar Management #60 Ref 0 TAB Omeprazole (Omeprazole) 20 Mg Tab 20 MG PO DAILY #30 Ref 0 TAB Maribell Pratt DO Dec 09, 2016 9:41 am
== END 2016-12-09 10:36 | disposition home or self-care (01) | DRG 281 ==
LOC: NEPC 00:31 → NEDA 04:16 → HCVR 06:25 → HCIN 15:56
PROVIDERS: ADMIT Hospitalist; ATTEND Hospitalist
DX: I21.4 Non-ST elevation (NSTEMI) myocardial infarction (principal); N17.9 Acute kidney failure, unspecified; I42.9 Cardiomyopathy, unspecified; I47.2 Ventricular tachycardia; E11.65 Type 2 diabetes mellitus with hyperglycemia; E86.0 Dehydration; Z95.1 Presence of aortocoronary bypass graft; I10 Essential (primary) hypertension; R55 Syncope and collapse; R10.32 Left lower quadrant pain; I25.10 Atherosclerotic heart disease of native coronary artery without angina pectoris; E78.5 Hyperlipidemia, unspecified; R15.9 Full incontinence of feces; I44.0 Atrioventricular block, first degree; I70.0 Atherosclerosis of aorta; I34.0 Nonrheumatic mitral (valve) insufficiency
CPT/HCPCS: 71010; 71275; 74174; 80048; 80053; 80061; 80076; 81001; 82550; 82552; 82948; 83036; 83735; 84484; 85025; 85610; 85730; 93005; 93306; 96360; J1644; J1815; J7030; Q9967

== ENCOUNTER 2016-12-12 15:17 | Inpatient (IN) | payer MEDICARE ==
[~2016-12-12] VITALS: Ht 177.8 cm; Wt 94.0 kg
[2016-12-12] VITALS (9 sets, daily range): BP systolic 100–144; BP diastolic 54–96; PULSE 58–197; RESP 14–26; TEMP 97.5–97.8; O2SAT 95–99
[~2016-12-12 15:17] MED LIST: ASPI81CH CHEW; ATOR20TA15 PO; CARV3.125 PO; GLIM2TAB PO; LEVOTAB PO; LOSA25TA PO; METF500T PO; OMEP20TA PO; PLAV75TA29 PO
--- NOTE | 2016-12-12 16:08 | PD ---
HPI Chief Complaint: Cardiac Complaint Time Seen by Provider: 15:44 Travel History International Travel<30 days: No Contact w/Intl Traveler<30days: No Traveled to known affect area: No History of Present Illness HPI This 76-year-old male says that he was at home where he got very short of breath and felt cold and clammy. She had an episode like this last FridayDecember 07. At that time he had a syncopal episode associated with incontinence of stool. He was taken by ambulance to the hospital. His troponin was 0.21 and subsequently jennifer to 1.12. It was thought that he had had an STEMI. He was released with carvedilol and Plavix in addition to his previous medication. He does have a history of diabetes. He is known to have frequent PVCs. He says that today after taking a shower he had an episode where he got very lightheaded and clammy. He broke out in a sweat and he had some pain in his gums. He says was similar to the previous episode except he did not pass out. It lasted for about 10-15 minutes. There was no chest pain. He is still having some mild shortness of breath now. He has no history of lung disease. He stopped smoking many years ago. He had a similar episode last July and was admitted at home in [place]. He had a cardiac catheterization done at that time. PFSH Past Medical History Cancer: No Cardiovascular Problems: Yes High Cholesterol: Yes Chest Pain: Yes Congestive Heart Failure: Yes Diabetes: Yes Patient Takes Glucophage: Yes Endocrine: Yes GERD: Yes Genitourinary: No Hypertension: Yes Immune Disorder: No Musculoskeletal: No Neurologic: Yes Psychiatric: No Reproductive: No Respiratory: No Immunizations Current: Yes Myocardial Infarction: Yes Thyroid Disease: No Triglycerides - High: Yes Tetanus Vaccination: < 5 Years Influenza Vaccination: Yes Past Surgical History Abdominal Surgery: Yes (Diverticulum) Cardiac Surgery: Yes (CABG SEP 2012) Coronary Artery Bypass Graft: Yes Oral Surgery: Yes (TONSILECTOMY) Tonsillectomy: Yes Other Surgery: Yes Social History Alcohol Use: Yes (Occ.) Tobacco Use: No Substance Use: No Allergies-Medications (Allergen,Severity, Reaction): Coded Allergies: No Known Allergies (Unverified , 12/12/16) Reported Meds & Prescriptions Reported Meds & Active Scripts Active Plavix (Clopidogrel Bisulfate) 75 Mg Tab 75 Mg PO DAILY Coreg (Carvedilol) 3.125 Mg Tab 3.125 Mg PO BID Reported Levocetirizine 5 Mg Tab 5 Mg PO DAILY Glimepiride 2 Mg Tab 2 Mg PO DAILY Take with breakfast or first main meal Omeprazole 20 Mg Tab 20 Mg PO DAILY Losartan (Losartan Potassium) 25 Mg Tab 25 Mg PO DAILY Metformin (Metformin HCl) 500 Mg Tab 500 Mg PO BIDPC With meals Atorvastatin (Atorvastatin Calcium) 20 Mg Tab 20 Mg PO HS Aspirin 81 Mg Chew 81 Mg CHEW DAILY Review of Systems General / Constitutional: No: Fever, Chills Eyes: No: Diploplia, Blurred Vision HENT: Positive: Lightheadedness, No: Headaches, Vertigo Cardiovascular: Positive: Palpitations, Tachycardia, No: Chest Pain or Discomfort Respiratory: Positive: Shortness of Breath Gastrointestinal: No: Vomiting, Diarrhea Genitourinary: No: Urgency, Frequency Musculoskeletal: No: Myalgias, Arthralgias Skin: No Rash Neurologic: Positive: Weakness, Dizziness Hematologic/Lymphatic: No: Easy Bruising Physical Exam Narrative GENERAL: Well-developed male SKIN: Warm and dry. HEAD: Atraumatic. Normocephalic. EYES: Pupils equal and round. No scleral icterus. No injection or drainage. ENT: No nasal bleeding or discharge. Mucous membranes pink and moist. NECK: Trachea midline. No JVD. CARDIOVASCULAR: Regular rate and rhythm. No murmur appreciated. RESPIRATORY: No accessory muscle use. Clear to auscultation. Breath sounds equal bilaterally. GASTROINTESTINAL: Abdomen soft, non-tender, nondistended. Hepatic and splenic margins not palpable. MUSCULOSKELETAL: No obvious deformities. No clubbing. No cyanosis. No edema. NEUROLOGICAL: Awake and alert. No obvious cranial nerve deficits. Motor grossly within normal limits. Normal speech. PSYCHIATRIC: Appropriate mood and affect; insight and judgment normal. Data Data Last Documented VS Vital Signs Date Time Temp Pulse Resp B/P Pulse Ox O2 Delivery O2 Flow Rate FiO2 12/12/16 16:45 74 14 100/54 95 Room Air 12/12/16 15:29 97.5 Orders Electrocardiogram (12/12/16 15:54) Complete Blood Count With Diff (12/12/16 15:54) Basic Metabolic Panel (Bmp) (12/12/16 15:54) Troponin I (12/12/16 15:54) B-Type Natriuretic Peptide (12/12/16 15:54) Urinalysis - C+S If Indicated (12/12/16 15:54) Magnesium (Mg) (12/12/16 15:54) Chest, Single Ap (12/12/16 15:54) Insulin Human Regular Inj (Novolin R Inj (12/12/16 17:15) Admit Order (Ed Use Only) (12/12/16 17:24) Labs Laboratory Tests Test 12/12/16 15:55 White Blood Count 7.1 TH/MM3 Red Blood Count 5.01 MIL/MM3 Hemoglobin 15.3 GM/DL Hematocrit 45.5 % Mean Corpuscular Volume 90.8 FL Mean Corpuscular Hemoglobin 30.5 PG Mean Corpuscular Hemoglobin 33.7 % Concent Red Cell Distribution Width 13.4 % Platelet Count 175 TH/MM3 Mean Platelet Volume 9.5 FL Neutrophils (%) (Auto) 66.5 % Lymphocytes (%) (Auto) 23.5 % Monocytes (%) (Auto) 7.6 % Eosinophils (%) (Auto) 2.3 % Basophils (%) (Auto) 0.1 % Neutrophils # (Auto) 4.7 TH/MM3 Lymphocytes # (Auto) 1.7 TH/MM3 Monocytes # (Auto) 0.5 TH/MM3 Eosinophils # (Auto) 0.2 TH/MM3 Basophils # (Auto) 0.0 TH/MM3 CBC Comment DIFF FINAL Differential Comment Sodium Level 139 MEQ/L Potassium Level 4.3 MEQ/L Chloride Level 103 MEQ/L Carbon Dioxide Level 25.5 MEQ/L Anion Gap 11 MEQ/L Blood Urea Nitrogen 20 MG/DL Creatinine 1.30 MG/DL Estimat Glomerular Filtration 54 ML/MIN Rate Random Glucose 283 MG/DL Calcium Level 8.7 MG/DL Magnesium Level 1.6 MG/DL Troponin I 0.09 NG/ML B-Type Natriuretic Peptide 110 PG/ML [facility] Medical Decision Making Medical Screen Exam Complete: Yes Emergency Medical Condition: Yes Medical Record Reviewed: Yes Differential Diagnosis Differential includes dysrhythmia, CA, Narrative Course EKG today shows sinus rhythm. There are frequent PVCs There are inverted T waves in lead 1. Had previously had an upright T wave. His troponin today is 0.09, down from 1.1. His sugar is elevated at 280. Diagnosis Primary Impression: Syncope, near Admitting Information Admitting Physician Requests: Admit Regan Cabrera MD Dec 12, 2016 16:08
[2016-12-12 16:36] LABS: AUTOMATED NEUTROPHIL # 4.7 TH/MM3 (1.8-7.7); BASOPHIL % 0.1 % (0.0-2.0); EOSINOPHIL # 0.2 TH/MM3 (0-0.4); EOSINOPHIL % 2.3 % (0.0-4.0); HEMATOCRIT 45.5 % (39.0-51.0); HEMO FLAGS DIFF FINAL; LYMPH % 23.5 % (9.0-44.0); LYMPHOCYTE # 1.7 TH/MM3 (1.0-4.8); MEAN CELL VOLUME 90.8 FL (80.0-100.0); MEAN CORPUSCULAR HEMOGLOBIN 30.5 PG (27.0-34.0); MEAN CORPUSCULAR HGB CONC 33.7 % (32.0-36.0); MONO % 7.6 % (0.0-8.0); NEUT % 66.5 % (16.0-70.0); PLATELET COUNT 175 TH/MM3 (150-450); RED BLOOD COUNT 5.01 MIL/MM3 (4.50-5.90); RED CELL DISTRIBUTION WIDTH 13.4 % (11.6-17.2); WHITE BLOOD COUNT 7.1 TH/MM3 (4.0-11.0)
[2016-12-12 16:44] LABS: POTASSIUM 4.3 MEQ/L (3.5-5.1)
[2016-12-12 16:47] LABS: BICARBONATE 25.5 MEQ/L (21.0-32.0); MAGNESIUM 1.6 MG/DL (1.5-2.5)
--- NOTE | 2016-12-12 17:00 | RADHPO ---
EXAM DATE/TIME: 12/12/2016 16:16 [facility] COMPARISON: CHEST SINGLE AP, December 07, 2016, 0:45. INDICATIONS : Shortness of breath. MEDICAL HISTORY : Hypertension. Diabetes mellitus type II. Myocardial infarction. SURGICAL HISTORY : CABG. ENCOUNTER: Initial ACUITY: 1 day PAIN SCORE: 0/10 LOCATION: Bilateral chest FINDINGS: A single view of the chest demonstrates postoperative median sternotomy. Minimal basilar atelectasis and scarring. No effusion. No pneumothorax. CONCLUSION: 1. Postoperative CABG. Minimal basilar atelectasis. Brandon Washington MD on December 12, 2016 at 16:57 Board Certified Radiologist. This report was verified electronically.
[2016-12-12] MEDS ORDERED: INSULIN HUMAN REGULAR 1,000 UNITS/10 ML VIAL SQ ONE (17:15)
[2016-12-12] MEDS ORDERED: MAGNESIUM HYDROXIDE SUSP 30 ML CUP PO PRN (17:30)
[2016-12-12] MEDS ORDERED: SODIUM CHLORIDE 0.9% FLUSH 5 ML FLUSH FLUSH PRN (17:30)
[2016-12-12] MEDS ORDERED: ONDANSETRON HCL 4 MG/2 ML VIAL IVP PRN (17:30)
[2016-12-12] MEDS ORDERED: NALOXONE HCL 0.4 MG/ML AMP IV PRN (17:30)
[2016-12-12] MEDS ORDERED: ACETAMINOPHEN 325 MG TAB PO PRN (17:30)
[2016-12-12 20:03] LABS: BLOOD, URINE NEG (NEG); GLUCOSE,URINE NEG (NEG); KETONE, URINE TRACE mg/dL (NEG); NITRITE,URINE NEG (NEG)
[2016-12-12 20:07] LABS: COMMENT (UR) CULT NOT INDICATED; CULTURE IF INDICATED CULT NOT INDICATED; METHOD OF COLLECTION VOIDED; SQUAMOUS EPITHELIAL CELL URINE 0-5 /hpf (0-5); URINE COLOR YELLOW (YELLW/STRAW); WBC, URINE 0-2 /hpf (0-5)
[2016-12-13] VITALS (23 sets, daily range): BP systolic 113–137; BP diastolic 60–87; PULSE 52–70; RESP 16–18; TEMP 97.6–98.5; O2SAT 95–97
--- NOTE | 2016-12-13 07:15 | HHI.HP ---
[facility] Service [facility] Primary Care Physician Non-Staff Admission Diagnosis NEAR SYNCOPE Diagnoses: Chief Complaint: sob Travel History International Travel<30 Days: No Contact w/Intl Traveler <30 Da: No Traveled to Known Affected Are: No History of Present Illness Pleasant 76-year-old male with a PMH of HTN, Hyperlipidemia and DM 2, CAD with CABG 09/16, Systolic CHF EF 35-40% who is brought to the ER by EMS after syncopal episode. He says that yesterday after taking a shower he had an episode where he got very lightheaded and clammy. He broke out in a sweat and he had some pain in his gums. He says was similar to the previous episode except he did not pass out. It lasted for about 10-15 minutes. There was no chest pain. He is not having shortness of breath now. He has no history of lung disease. He stopped smoking many years ago. He had a similar episode last July and was admitted at home in [place]. He had a cardiac catheterization done at that time. No fecal incontinence, no convulsions. He was in the hospital recently, last FridayDecember 07. At that time he had a syncopal episode associated with incontinence of stool. He was taken by ambulance to the hospital. His troponin was 0.21 and subsequently jennifer to 1.12. It was thought that he had had an STEMI. He was released with carvedilol and Plavix in addition to his previous medication. Patient also has frequent PVCs. Previous recent imaging reviewed CTA Aorta negative for dissection or aneurysm. Review of Systems Except as stated in HPI: all other systems reviewed are Neg 12 ROS reviewed and negative except as mentioned in HPI Past Family Social History Past Medical History HTN, Hyperlipidemia and DM 2, CAD with CABG 09/16, recent NSTEMI, Systolic CHF EF 35-40% Past Surgical History CABG Sep 2012 Tonsillectomy, abdominal surgery unspecified Reported Medications Last Impressions Chest X-Ray 12/12/16 2194 Signed Impressions: Service Date/Time: , December 12, 2016 16:16 - CONCLUSION: 1. Postoperative CABG. Minimal basilar atelectasis. Brandon Washington MD Allergies: Coded Allergies: No Known Allergies (Unverified , 12/12/16) Family History Diabetes runs in family Social History Denies alcohol, tobacco or illicit drug use. Physical Exam Vital Signs Vital Signs Date Time Temp Pulse Resp B/P Pulse Ox O2 Delivery O2 Flow Rate FiO2 12/13/16 03:00 52 12/13/16 02:00 52 12/13/16 01:00 55 12/12/16 23:30 97.8 58 16 144/84 98 12/12/16 22:05 59 16 114/66 99 Room Air 12/12/16 20:30 67 26 123/54 99 Room Air 12/12/16 19:25 99 Room Air 12/12/16 19:25 68 16 136/77 99 Room Air 12/12/16 18:15 64 16 111/61 98 Room Air 12/12/16 16:45 74 14 100/54 95 Room Air 12/12/16 15:45 76 16 102/67 95 Room Air 12/12/16 15:45 76 16 95 Room Air 12/12/16 15:29 97.5 197 15 138/96 96 Physical Exam GENERAL: This is a pleasant 76 yo male, well-nourished, well-developed patient, in no apparent distress. SKIN: No rashes, ecchymoses or lesions. Cool and dry. HEAD: Atraumatic. Normocephalic. No temporal or scalp tenderness. EYES: Pupils equal round and reactive. Extraocular motions intact. No scleral icterus. No injection or drainage. ENT: Nose without bleeding, purulent drainage or septal hematoma. Throat without erythema, tonsillar hypertrophy or exudate. Uvula midline. Airway patent. NECK: Trachea midline. No JVD or lymphadenopathy. Supple, nontender, no meningeal signs. CARDIOVASCULAR: Regular rate and rhythm without murmurs, gallops, or rubs. RESPIRATORY: Clear to auscultation. Breath sounds equal bilaterally. No wheezes , rales, or rhonchi. GASTROINTESTINAL: Abdomen soft, non-tender, nondistended. No hepato-splenomegaly , or palpable masses. No guarding. MUSCULOSKELETAL: Extremities without clubbing, cyanosis, or edema. No joint tenderness, effusion, or edema noted. No calf tenderness. Negative Homans sign bilaterally. NEUROLOGICAL: Awake and alert. Cranial nerves II through XII intact. Motor and sensory grossly within normal limits. Five out of 5 muscle strength in all muscle groups. Normal speech. Laboratory Laboratory Tests Test 12/12/16 12/12/16 12/12/16 12/13/16 15:55 18:15 19:20 01:10 White Blood Count 7.1 Red Blood Count 5.01 Hemoglobin 15.3 Hematocrit 45.5 Mean Corpuscular Volume 90.8 Mean Corpuscular Hemoglobin 30.5 Mean Corpuscular Hemoglobin 33.7 Concent Red Cell Distribution Width 13.4 Platelet Count 175 Mean Platelet Volume 9.5 Neutrophils (%) (Auto) 66.5 Lymphocytes (%) (Auto) 23.5 Monocytes (%) (Auto) 7.6 Eosinophils (%) (Auto) 2.3 Basophils (%) (Auto) 0.1 Neutrophils # (Auto) 4.7 Lymphocytes # (Auto) 1.7 Monocytes # (Auto) 0.5 Eosinophils # (Auto) 0.2 Basophils # (Auto) 0.0 CBC Comment DIFF FINAL Differential Comment Sodium Level 139 Potassium Level 4.3 Chloride Level 103 Carbon Dioxide Level 25.5 Anion Gap 11 Blood Urea Nitrogen 20 Creatinine 1.30 Estimat Glomerular Filtration 54 Rate Random Glucose 283 Calcium Level 8.7 Magnesium Level 1.6 Troponin I 0.09 0.15 0.15 B-Type Natriuretic Peptide 110 Urine Collection Type VOIDED Urine Color YELLOW Urine Turbidity CLEAR Urine pH 6.0 Urine Specific [place] 1.017 Urine Protein TRACE Urine Glucose (UA) NEG Urine Ketones TRACE Urine Occult Blood NEG Urine Nitrite NEG Urine Bilirubin NEG Urine Leukocyte Esterase NEG Urine WBC 0-2 Urine Squamous Epithelial 0-5 Cells Urine Hyaline Casts 3-5 Microscopic Urinalysis Comment CULT NOT INDICATED Result Diagram: 12/12/16 1555 12/12/16 1555 Imaging Last Impressions Chest X-Ray 12/12/16 1554 Signed Impressions: Service Date/Time: December 16:16 - CONCLUSION: 1. Postoperative CABG. Minimal basilar atelectasis. Brandon Washington MD Assessment and Plan Assessment and Plan Syncope Recent NSTEMI/CAD with preior CABG Sep 2012 Systolic CHF recent ECHO EF 35-40% not with exacerbation. BNP 110 Troponin elevated on this admission 0.09--> 0.15--> 0.15. His troponin on this admission is down from 1.1. EKG on admission reviewed: Sinus rhythm, frequent PVCs. Inverted T waves in lead I, previously had upright T wave. Recent ECHO reviewed: mild systolic dysfunction EF 35-40%. Ordered Holter monitor Check carotid US Monitor on telemetry Consult cardiology. Plan for cardiac cath Continue home meds. Mild ALEXANDER: Creatinine 1.30. Gentle IVF, repeat labs in am. UA reviewed and normal. DM2: Sliding scale w/ Accu-Cheks. Hold Metformim/glipizide, restart at DC. DVT Prophylaxis: SCD/TEDs Case management consult for DC planning as needed. Discussed Condition With patient, nurse Physician Certification 2 Midnight Certification Type: Admission for Inpatient Services Order for Inpatient Services The services are ordered in accordance with Medicare regulations or non- Medicare payer requirements, as applicable. In the case of services not specified as inpatient-only, they are appropriately provided as inpatient services in accordance with the 2-midnight benchmark. Estimated LOS (days): 3 days is the estimated time the patient will need to remain in the hospital, assuming treatment plan goals are met and no additional complications. Post-Hospital Plan: Home Eugenie Richard MD Dec 13, 2016 07:15
[2016-12-13] MEDS: SODIUM CHLORIDE 0.9% FLUSH 5 ML FLUSH FLUSH SCH ×2 (09:00→10:12)
--- NOTE | 2016-12-13 09:19 | RADRPT ---
EXAM DATE/TIME: 12/13/2016 08:17 [facility] COMPARISON: No previous studies available for comparison. INDICATIONS : Syncope. MEDICAL HISTORY : Myocardial infarction. Hypercholesterolemia. Gastroesophageal reflux disease. Syncope. Congestive hea rt failure. Diabetes. SURGICAL HISTORY : Tonsillectomy. CABG. ENCOUNTER: Initial ACUITY: 1 day PAIN SCORE: 10/15 LOCATION: Bilateral neck PEAK SYSTOLIC VELOCITIES (cm/sec): ICA/CCA RATIO: Right: 1.1 Left: 0.8 ICA: Right: 103 Left: 102 CCA: Right: 92 Left: 121 ECA: Right: 102 Left: 226 VERTEBRAL: Right: 45 antegrade Left: 50 antegrade Elevated flow velocities and ICA/CCA ratios have been found to correlate with increased degrees of vessel stenosis, calculated as percentage of diameter relative to a normal segment of distal ICA/CCA FINDINGS: RIGHT CAROTID: Trace plaque seen at the bulb and proximal internal carotid artery. LEFT CAROTID: Trace plaque seen of the bulb and proximal internal carotid artery. Focal mild to moderate plaque see n in the proximal external carotid artery. VERTEBRAL ARTERIES: Antegrade flow is seen in both vertebral arteries. MISCELLANEOUS: None. CONCLUSION: Very mild bulb and proximal internal carotid artery atherosclerotic plaque without anything hemodynam ically significant. There is slightly more exuberant plaque of the proximal left external carotid art hui. Drew Gonzalez MD on December 13, 2016 at 9:16 Board Certified Radiologist. This report was verified electronically.
[2016-12-13] MEDS ORDERED: GLUCAGON 1 MG/ML VIAL OTHER PRN (12:00)
[2016-12-13] MEDS ORDERED: DEXTROSE 50% IN WATER 50 ML VIAL(D50) IV PUSH PRN (12:00)
[2016-12-13] MEDS ORDERED: HEPARIN-NS/PF INJ 500 ML ONE (12:22)
[2016-12-13] MEDS ORDERED: NITROGLYCERIN INJ 5 ML ONE (12:23)
[2016-12-13] MEDS ORDERED: MIDAZOLAM HCL 2 MG/2 ML VIAL ONE ×2 (12:23→13:56)
[2016-12-13] MEDS ORDERED: HEPARIN SODIUM - IV 10,000 UNITS/10 ML VIAL ONE (12:23)
[2016-12-13] MEDS ORDERED: VERAPAMIL HCL 5 MG/2 ML VIAL ONE (12:23)
--- NOTE | 2016-12-13 13:11 | MB ---
cc: [facility] G[facility] DATE OF CONSULTATION: 12/13/2016 DATE OF : 1940 REASON FOR CONSULTATION Near-syncope. HISTORY OF PRESENT ILLNESS 76-year-old male with past medical history significant for coronary artery disease status post four-vessel bypass in September 16, 2012, hypertension, hyperlipidemia, diabetes type 2, LV systolic dysfunction with EF of 35%, who was brought into the emergency department via EMS after a near syncope episode. He reports that yesterday after taking a hot shower he had a sudden onset of lightheadedness, dizziness, and broke out in a sweat that lasted about 10 minutes. There was no chest pain or shortness of breath, however, he noticed that he was hypotensive. The patient was recently discharged from [place] last week after being evaluated for another syncopal episode associated with stool incontinence. At that time his troponin was 1.12. He was seen by cardiology, Dr. Antonella Cabral, who recommended to do a left heart catheterization at that time but the patient refused. Thus the patient was discharged home with optimization of medical therapy. He was started on Coreg 3.25 mg p.o. b.i.d. REVIEW OF SYSTEMS The review of systems is negative except for what is mentioned in the HPI. PAST MEDICAL HISTORY 1. Hypertension. 2. Hyperlipidemia. 3. Diabetes type 2. 4. Coronary artery disease, status post CABG. 5. LV systolic dysfunction with EF of 35%. PAST SURGICAL HISTORY 1. CABG. 2. Tonsillectomy. MEDICATIONS Home medications: 1. Aspirin 81 mg p.o. daily. 2. Lipitor 20 mg p.o. daily. 3. Coreg 3.125 mg p.o. b.i.d. 4. Plavix 75 mg p.o. daily. 5. Glimepiride 2 mg p.o. daily. 6. Losartan 25 mg p.o. daily. 7. Metformin 500 mg p.o. b.i.d. 8. Omeprazole 20 mg p.o. daily. FAMILY HISTORY Diabetes. SOCIAL HISTORY Denies alcohol, tobacco or illicit drug use. ALLERGIES No known drug allergies. PHYSICAL EXAMINATION VITAL SIGNS: Temperature 97, respiratory rate 18, heart rate 57, blood pressure 137/79. O2 sats 95% in room air. GENERAL: Awake, alert, oriented x3, in no acute distress. NECK: No JVD. No carotid bruits. HEART: Regular rate and rhythm without murmurs, rubs or gallops. LUNGS: Clear to auscultation bilaterally. No wheezes, rhonchi or rales. ABDOMEN: Soft, nontender, nondistended with positive bowel sounds. EXTREMITIES: No cyanosis or edema. Pulses throughout. LABORATORY DATA CBC: Hemoglobin 15, hematocrit 45, platelet count 175. Chemistries: Sodium 139, potassium 4.3, BUN 20, creatinine 1.3. Troponin 0.09, 0.15, and 0.15. BNP 110. IMAGING DATA Carotid ultrasound unremarkable. Chest x-ray: No acute cardiopulmonary process. ASSESSMENT AND PLAN A 76-year-old male with known history of coronary artery disease admitted with near-syncope. Troponin is mildly elevated. He remains stable and hemodynamically stable. This near-syncopal episode was in the setting of taking a hot shower which can be due to vasovagal, however, this is the second time this happened in the period of one week. The last time he was here his troponins went up to 1.2. A catheterization was not pursued because the patient declined; however, this time around the patient agrees to have it done. I think it would be reasonable to offer him a left heart catheterization to further assess progression of coronary artery disease. The risks and benefits of left heart cath/intervention have been explained to the patient. These include but are not limited to neurovascular trauma, stroke, MD, renal failure, emergent bypass surgery and . The patient understands the risk and he is willing to proceed. Continue with medical management. Further therapy to be determined. MD RIAZ eWaver/BT /10:06 AM /12:56 PM QAMAR
[2016-12-13] MEDS ORDERED: ceFAZolin INJ 1,000 MG VIAL ONE (14:29)
[2016-12-13] MEDS ORDERED: SODIUM CHLORIDE 0.9% FLUSH 5 ML FLUSH IVF PRN (14:45)
[2016-12-13] MEDS ORDERED: IOHEXOL 350 MG/ML 100 ML BTL (for Cath Lab) OTHER ONE (14:45)
[2016-12-13] MEDS ORDERED: MISC INFORMATION XX ONE (14:45)
[2016-12-13] MEDS: INSULIN ASPART SUPPLEMENTAL SCALE SQ SCH ×2 (16:00→21:00)
[2016-12-13] MEDS ORDERED: BACITRACIN OINT 0.9 GM PKT ONE (17:35)
--- NOTE | 2016-12-13 17:49 | MA ---
cc: [facility] G[facility] DATE: 12/13/2016. PROCEDURE PERFORMED: Left heart left heart catheterization, selective right and left coronary angiography, ascending aortogram, right common femoral artery angiography. INDICATIONS FOR THE PROCEDURE: Syncope with a recent NSTEMI. DESCRIPTION OF THE PROCEDURE IN DETAIL: Consent signed. The patient was brought into the cardiac label folder in a fasting state and the right groin was prepped and draped in a sterile fashion using 1% lidocaine for local anesthesia. A micropuncture kit and a 6-[place] sheath was inserted into the right common femoral artery. The right common femoral artery angiography was performed to confirm position of the sheath. Then selective left and right coronary angiography was performed followed by graft angiography. Angiography was taken in multiple views. The patient tolerated the procedure well without complications. ESTIMATED BLOOD LOSS: Estimated blood loss less than 70 mL. TOTAL CONTRAST USED: The total contrast used was 150 mL. A JR-4 guide was inserted over the wire to the left ventricle followed by pressure recordings and pullback. The right groin was closed with the Angio-Seal closing device. ANGIOGRAPHIC RESULTS: LEFT VENTRICLE: The left ventricular pressure was 98/4 with an left ventricular end diastolic pressure of 4. The aortic pressure was 109/65 with a mean of 83. There was no gradient on pullback from the left ventricle to the aorta. ANGIOGRAPHY: MONTERO to the LAD patent. ZORAIDA to the PDA is patent. SVG to the OM patent. SVG to the diagonal patent. Left main is long and diffusely diseased and has MARGARITA III flow. The ramus is small and diffusely diseased. The circumflex is diffusely diseased; it has a mid 40% lesion, a distal 70% lesion. The first obtuse marginal has competitive flow coming from the graft and it has a 99% lesion proximally. The right coronary artery is a dominant vessel. It has a significant 90% lesion in its distal segment. This vessel is a large vessel. The rest of it has MARGARITA III flow. CONCLUSIONS: Severe citizen [place] coronary artery disease with patent grafts. RECOMMENDATIONS: 1. Continue aggressive medical management for secondary prevention of coronary artery disease as well as exercise and diet. 2. The patient should follow up with me in the office in about a week. MD RIAZ Weaver/LISHA /2:41 PM /5:40 PM QAMAR
--- NOTE | 2016-12-13 19:55 | EKG ---
Date Performed: 12/12/2016 Time Performed: 16:02:58 PTAGE: 76 years EKG: Sinus rhythm with PVC(s) with 1st degree A-V block Possible left atrial abnormality Leftward axis Incomplete RBBB Inferior infarct - age undetermined QRS changes V3/V4 may be due to LVH but cannot rule out anterior infarct Right ventricular hypertrophy Lateral ST-T changes may be due to myocardial ischemia Abnorma l ECG PREVIOUS TRACING : 12/07/2016 00.31 Compared to prior tracing no significant change DOCTOR: Hesham Dean Interpretating Date/Time 12/13/2016 19:54:30
[2016-12-13] MEDS ORDERED: ATORVASTATIN 20 MG TAB PO SCH (21:00)
[2016-12-13] MEDS: SODIUM CHLORIDE 0.9% FLUSH 5 ML FLUSH IVF SCH (22:20)
[2016-12-14] VITALS (9 sets, daily range): BP systolic 135–144; BP diastolic 79–82; PULSE 54–85; RESP 18; TEMP 85–97.4; O2SAT 98
[2016-12-14 04:33] LABS: AUTOMATED NEUTROPHIL # 6.5 TH/MM3 (1.8-7.7); BASOPHIL % 0.3 % (0.0-2.0); EOSINOPHIL # 0.2 TH/MM3 (0-0.4); EOSINOPHIL % 1.9 % (0.0-4.0); HEMATOCRIT 43.3 % (39.0-51.0); HEMO FLAGS DIFF FINAL; LYMPHOCYTE # 2.6 TH/MM3 (1.0-4.8); MEAN CELL VOLUME 87.5 FL (80.0-100.0); MEAN CORPUSCULAR HEMOGLOBIN 31.2 PG (27.0-34.0); MEAN CORPUSCULAR HGB CONC 35.7 % (32.0-36.0); MONO % 9.5 % (0.0-8.0); NEUT % 63.3 % (16.0-70.0); PLATELET COUNT 161 TH/MM3 (150-450); RED BLOOD COUNT 4.94 MIL/MM3 (4.50-5.90); RED CELL DISTRIBUTION WIDTH 13.4 % (11.6-17.2); WHITE BLOOD COUNT 10.3 TH/MM3 (4.0-11.0)
[2016-12-14 05:13] LABS: MAGNESIUM 1.9 MG/DL (1.5-2.5); POTASSIUM 3.9 MEQ/L (3.5-5.1)
[2016-12-14] MEDS: INSULIN ASPART SUPPLEMENTAL SCALE SQ SCH (07:00)
[2016-12-14] MEDS ORDERED: NITR1SUB3 SL (07:33)
--- NOTE | 2016-12-14 07:33 | HHI.DS ---
Discharge Summary Admission Date Dec 12, 2016 at 17:26 Discharge Date: Dec 14, 2016 Admitting Diagnosis NEAR SYNCOPE (1) Syncope, near ICD Code: R55 Diagnosis: Principal (2) ALEXANDER (acute kidney injury) ICD Code: N17.9 Diagnosis: Principal (3) Renal insufficiency ICD Code: N28.9 Diagnosis: Secondary (4) DM (diabetes mellitus) ICD Code: E11.9 Diagnosis: Secondary (5) NSTEMI (non-ST elevated myocardial infarction) ICD Code: I21.4 Diagnosis: Secondary Procedures s/p cardiac cath Brief History - From Admission Pleasant 76-year-old male with a PMH of HTN, Hyperlipidemia and DM 2, CAD with CABG 09/16, Systolic CHF EF 35-40% who is brought to the ER by EMS after syncopal episode. He says that yesterday after taking a shower he had an episode where he got very lightheaded and clammy. He broke out in a sweat and he had some pain in his gums. He says was similar to the previous episode except he did not pass out. It lasted for about 10-15 minutes. There was no chest pain. He is not having shortness of breath now. He has no history of lung disease. He stopped smoking many years ago. He had a similar episode last July and was admitted at home in [place]. He had a cardiac catheterization done at that time. No fecal incontinence, no convulsions. He was in the hospital recently, last FridayDecember 07. At that time he had a syncopal episode associated with incontinence of stool. He was taken by ambulance to the hospital. His troponin was 0.21 and subsequently jennifer to 1.12. It was thought that he had had an STEMI. He was released with carvedilol and Plavix in addition to his previous medication. Patient also has frequent PVCs. Previous recent imaging reviewed CTA Aorta negative for dissection or aneurysm. CBC/BMP: 12/14/16 0403 12/14/16 0353 Significant Findings Laboratory Tests Test 12/12/16 12/12/16 12/12/16 12/13/16 15:55 18:15 19:20 01:10 Blood Urea Nitrogen 20 MG/DL (7-18) Estimat Glomerular Filtration 54 ML/MIN (>89) Rate Random Glucose 283 MG/DL (74-106) Troponin I 0.09 NG/ML 0.15 NG/ML 0.15 NG/ML (0.02-0.05) (0.02-0.05) (0.02-0.05) B-Type Natriuretic Peptide 110 PG/ML (0-100) Urine Ketones TRACE mg/dL (NEG) Urine Hyaline Casts 3-5 /lpf (RARE) Test 12/14/16 12/14/16 03:53 04:03 Random Glucose 142 MG/DL (74-106) Monocytes (%) (Auto) 9.5 % (0.0-8.0) Monocytes # (Auto) 1.0 TH/MM3 (0-0.9) Imaging Last Impressions Carotid Artery Ultrasound 12/13/16 0000 Signed Impressions: Service Date/Time: Tuesday, December 13, 2016 08:17 - CONCLUSION: Very mild bulb and proximal internal carotid artery atherosclerotic plaque without anything hemodynamically significant. There is slightly more exuberant plaque of the proximal left external carotid artery. Drew Gonzalez MD Chest X-Ray 12/12/16 1554 Signed Impressions: Service Date/Time: December 16:16 - CONCLUSION: 1. Postoperative CABG. Minimal basilar atelectasis. Brandon Washington MD PE at Discharge GENERAL: This is a pleasant 76 yo male, well-nourished, well-developed patient, in no apparent distress. SKIN: No rashes, ecchymoses or lesions. Cool and dry. HEAD: Atraumatic. Normocephalic. No temporal or scalp tenderness. EYES: Pupils equal round and reactive. Extraocular motions intact. No scleral icterus. No injection or drainage. ENT: Nose without bleeding, purulent drainage or septal hematoma. Throat without erythema, tonsillar hypertrophy or exudate. Uvula midline. Airway patent. NECK: Trachea midline. No JVD or lymphadenopathy. Supple, nontender, no meningeal signs. CARDIOVASCULAR: Regular rate and rhythm without murmurs, gallops, or rubs. RESPIRATORY: Clear to auscultation. Breath sounds equal bilaterally. No wheezes , rales, or rhonchi. GASTROINTESTINAL: Abdomen soft, non-tender, nondistended. No hepato-splenomegaly , or palpable masses. No guarding. MUSCULOSKELETAL: Extremities without clubbing, cyanosis, or edema. No joint tenderness, effusion, or edema noted. No calf tenderness. Negative Homans sign bilaterally. NEUROLOGICAL: Awake and alert. Cranial nerves II through XII intact. Motor and sensory grossly within normal limits. Five out of 5 muscle strength in all muscle groups. Normal speech. Pt update on day of discharge Feels much better. no chest pain or sob. Doesn't feel palpitations. Denies lightheadedness. No n/v/d/c. Feels comfortable to go home. Hospital Course Syncope Recent NSTEMI/CAD with preior CABG Sep 2012 Systolic CHF recent ECHO EF 35-40% not with exacerbation. BNP 110 Troponin elevated on this admission 0.09--> 0.15--> 0.15. His troponin on this admission is down from 1.1. EKG on admission reviewed: Sinus rhythm, frequent PVCs. Inverted T waves in lead I, previously had upright T wave. Recent ECHO reviewed: mild systolic dysfunction EF 35-40%. Carotid US without hemodinamically significant stenosis Monitor on telemetry Consult cardiology. S/P cardiac cath, stents are patent. Cleared by cardio for DC, continue medical management per cardio, to follow up as OP. Continue home meds. Mild ALEXANDER: Creatinine 1.30. Gentle IVF, repeat labs in am. UA reviewed and normal. Improved. DM2: Sliding scale w/ Accu-Cheks. Hold Metformim/glipizide, restart at DC. DVT Prophylaxis: SCD/TEDs Case management consult for DC planning as needed. Discussed Condition With patient, nurse improved, cleared by cardio for DC. To follow up as OP with PCP and consultants. Pt Condition on Discharge: Stable Discharge Disposition: Discharge Home Discharge Time: <= 30 minutes Discharge Instructions DIET: Follow Instructions for: Heart Healthy Diet, Diabetic Diet Activities you can perform: Regular-No Restrictions Follow up Referrals: Cardiology - 1 Week PCP Follow-up - 3-5 Days New Medications: Nitroglycerin SL (Nitroglycerin SL) 0.4 Mg Subl 0.4 MG SL DIRECTED ONE TABLET UNDER THE TONGUE NEEDED FOR CHEST PAIN, MAY REPEAT EVERY FIVE MINUTES FOR A TOTAL OF 3 DOSES OR CALL 911 IF NO RELIEF PRN CHEST PAIN #100 Ref 0 TAB.SL Continued Medications: Aspirin (Aspirin) 81 Mg Chew 81 MG CHEW DAILY Ref 0 TAB Atorvastatin (Atorvastatin) 20 Mg Tab 20 MG PO HS Cholesterol Management #30 Ref 0 TAB Carvedilol (Coreg) 3.125 Mg Tab 3.125 MG PO BID Heart #60 Ref 0 TAB Clopidogrel (Plavix) 75 Mg Tab 75 MG PO DAILY Blood Clot Prevention #30 Ref 0 TAB Glimepiride (Glimepiride) 2 Mg Tab 2 MG PO DAILY Take with breakfast or first main meal Blood Sugar Management #30 Ref 0 TAB Levocetirizine (Levocetirizine) 5 Mg Tab 5 MG PO DAILY Allergy Management #30 Ref 0 TAB Losartan (Losartan) 25 Mg Tab 25 MG PO DAILY Blood Pressure Management #30 Ref 0 TAB Metformin (Metformin) 500 Mg Tab 500 MG PO BIDPC With meals Blood Sugar Management #60 Ref 0 TAB Omeprazole (Omeprazole) 20 Mg Tab 20 MG PO DAILY #30 Ref 0 TAB Eugenie Richard MD Dec 14, 2016 07:33
[2016-12-14] MEDS ORDERED: CLOPIDOGREL 75 MG TAB PO SCH (09:00)
[2016-12-14] MEDS: SODIUM CHLORIDE 0.9% FLUSH 5 ML FLUSH IVF SCH (09:00)
[2016-12-14] MEDS ORDERED: PANTOPRAZOLE SOD 20 MG DELAYED RELEASE TAB PO SCH (09:00)
[2016-12-14] MEDS: SODIUM CHLORIDE 0.9% FLUSH 5 ML FLUSH FLUSH SCH (09:00)
--- NOTE | 2016-12-14 10:21 | PD.CARD.PN ---
Subjective Subjective Remarks No chest pain, no shortness of breath, no palpitations Objective Medications Current Medications Medications (Trade) Dose Ordered Sig/Melissa Route Start Time Stop Time Status Last Admin (NS Flush) 2 ml UNSCH PRN FLUSH 12/12/16 17:30 (NS Flush) 2 ml BID FLUSH 12/12/16 21:00 12/13/16 10:12 (Tylenol) 650 mg Q4H PRN PO 12/12/16 17:30 (Zofran Inj) 4 mg Q6H PRN IVP 12/12/16 17:30 (Milk Of Magnesia Liq) 30 ml Q12H PRN PO 12/12/16 17:30 (Narcan Inj) 0.4 mg UNSCH PRN IV 12/12/16 17:30 (Lipitor) 20 mg HS PO 12/13/16 21:00 12/13/16 22:20 (Plavix) 75 mg DAILY PO 12/14/16 09:00 (Protonix) 20 mg DAILY PO 12/14/16 09:00 (D50w (Vial) Inj) 25 ml UNSCH PRN IV PUSH 12/13/16 12:00 (Glucagon Inj) 1 mg UNSCH PRN OTHER 12/13/16 12:00 (NS Flush) 2 ml UNSCH PRN IVF 12/13/16 14:45 (NS Flush) 2 ml BID IVF 12/13/16 21:00 12/13/16 22:20 Vital Signs / I&O Vital Signs Date Time Temp Pulse Resp B/P Pulse Ox O2 Delivery O2 Flow Rate FiO2 12/14/16 08:32 85 12/14/16 06:00 69 12/14/16 05:00 56 12/14/16 04:50 97.4 68 18 135/79 98 12/14/16 04:00 60 12/14/16 03:00 60 12/14/16 01:00 66 12/14/16 00:00 54 12/13/16 23:30 97.8 59 18 125/72 97 12/13/16 23:00 56 12/13/16 22:00 58 12/13/16 21:00 62 12/13/16 20:00 60 12/13/16 20:00 97.8 68 18 136/87 97 12/13/16 19:00 59 12/13/16 18:00 66 12/13/16 17:00 56 12/13/16 16:00 56 12/13/16 16:00 98.5 58 18 117/81 97 12/13/16 15:00 55 12/13/16 15:00 98.0 55 16 128/81 97 12/13/16 12:00 62 12/13/16 11:00 98.3 64 18 117/71 95 12/13/16 11:00 62 I/O 12/13/16 12/13/16 12/13/16 12/14/16 12/14/16 12/14/16 07:00 15:00 23:00 07:00 15:00 23:00 Intake Total 240 ml 240 ml 360 ml Output Total 650 ml Balance 240 ml 240 ml -290 ml Intake Oral 240 ml 240 ml 360 ml Output Urine Total 650 ml # Voids 2 2 0 Physical Exam GENERAL: NAD, AAOx3 SKIN: Warm and dry. HEAD: Atraumatic. Normocephalic. EYES: Pupils equal and round. No scleral icterus. No injection or drainage. ENT: No nasal bleeding or discharge. Mucous membranes pink and moist. NECK: Trachea midline. No JVD. CARDIOVASCULAR: Regular rate and rhythm. RESPIRATORY: No accessory muscle use. Clear to auscultation. Breath sounds equal bilaterally. GASTROINTESTINAL: Abdomen soft, non-tender, nondistended. Hepatic and splenic margins not palpable. MUSCULOSKELETAL: Extremities without clubbing, cyanosis, or edema. No obvious deformities. Left radial no hematoma, neurovascularly intact distally. Right femoral no hematoma/bruit NEUROLOGICAL: Awake and alert. No obvious cranial nerve deficits. Motor grossly within normal limits. Five out of 5 muscle strength in the arms and legs. Normal speech. PSYCHIATRIC: Appropriate mood and affect; insight and judgment normal. Laboratory Laboratory Tests Test 12/14/16 12/14/16 03:53 04:03 Sodium Level 139 MEQ/L Potassium Level 3.9 MEQ/L Chloride Level 105 MEQ/L Carbon Dioxide Level 25.0 MEQ/L Anion Gap 9 MEQ/L Blood Urea Nitrogen 18 MG/DL Creatinine 0.83 MG/DL Estimat Glomerular Filtration 90 ML/MIN Rate Random Glucose 142 MG/DL Calcium Level 8.7 MG/DL Magnesium Level 1.9 MG/DL White Blood Count 10.3 TH/MM3 Red Blood Count 4.94 MIL/MM3 Hemoglobin 15.4 GM/DL Hematocrit 43.3 % Mean Corpuscular Volume 87.5 FL Mean Corpuscular Hemoglobin 31.2 PG Mean Corpuscular Hemoglobin 35.7 % Concent Red Cell Distribution Width 13.4 % Platelet Count 161 TH/MM3 Mean Platelet Volume 8.4 FL Neutrophils (%) (Auto) 63.3 % Lymphocytes (%) (Auto) 25.0 % Monocytes (%) (Auto) 9.5 % Eosinophils (%) (Auto) 1.9 % Basophils (%) (Auto) 0.3 % Neutrophils # (Auto) 6.5 TH/MM3 Lymphocytes # (Auto) 2.6 TH/MM3 Monocytes # (Auto) 1.0 TH/MM3 Eosinophils # (Auto) 0.2 TH/MM3 Basophils # (Auto) 0.0 TH/MM3 CBC Comment DIFF FINAL Differential Comment Assessment and Plan Problem List: (1) Syncope, near (2) ALEXANDER (acute kidney injury) (3) NSTEMI (non-ST elevated myocardial infarction) (4) DM (diabetes mellitus) (5) Renal insufficiency Assessment and Plan 1) Cardiac cath showing patent grafts 2) Con't ASA/Plavix 3) Cardiovascularly stable for discharge 4) Possible arrhythmogenic cause of syncope/near-syncope... Holter monitor 5) Follow up with Cardiology this week 6) Will watch blood pressure at home Hesham Dean DO Dec 14, 2016 10:21
--- NOTE | 2016-12-18 08:05 | HM ---
Date Performed: 12/14/2016 Time Performed: 09:38:00 HOOKUP DATE: 12/14/16 09:38:00 AM Sat ANALYSIS START TIME: 12/14/2016 9:43:00 AM ANALYSIS END TIME: 12/15/2016 8:26:06 AM PATIENT AGE: 76 PATIENT HEIGHT PATIENT WEIGHT DRUG LIST PATIENT DIAGNOSIS: SOB/HYPOTENSION TEST NARRATIVE: The patient's average heart rate was 67 BPM. No episodes of tachycardia wer e noted. Heart rates less than 50 BPM were noted < 1% of the time. No pauses exceeding 2.0 secon ds were noted. 5147 ventricular ectopics, which represented 6% of the total beat count, were note d. The highest ventricular ectopic frequency occurred from 12:00 AM to 01:00 AM Sun. During this ti me 748 VE(s) occurred. Ventricular ectopics were observed as 4043 isolated beat(s), as 541 couplet(s ) and as 7 run(s). Some of the ventricular beats occurred in bigeminal cycles. 5 supraventricula r ectopics, which represented < 1% of the total beat count, were noted. The highest supraventricular ectopic frequency occurred from 04:00 AM to 05:00 AM Sun. During this time 2 SVE(s) occurred. M ultiple episodes of ST depression (defined as -1.0 mm or more) were noted in channel 1. The maximum depression of -1.8 mm occurred at 12:22:29 PM Sat. Multiple episodes of ST depression (defined as - 1.0 mm or more) were noted in channel 2. The maximum depression of -1.4 mm occurred at 10:06:18 AM Sat. No episodes of ST depression (defined as -1.0 mm or more) were noted in channel 3. TEST INTERPRETATION: Holter notable for occasional PACs and PVCs with complex ventricular ectopy including couplets and triplets as well as bigeminy seen. No sustained atrial fibrillation or other dysrhythmia. Moderate ST depression was present throughout the study. Clinical correlation is recomme nded. Signed by : Dolye Louie in
== END 2016-12-14 11:10 | disposition home or self-care (01) | DRG 287 ==
LOC: PHED 15:17 → PHEDA 17:26 → HCIS 23:20
PROVIDERS: ADMIT Hospitalist; ATTEND Hospitalist
PROC: 4A023N7 Measurement of Cardiac Sampling and Pressure, Left Heart, Percutaneous Approach (ICD-10-PCS; principal; 2016-12-12)
PROC: B2111ZZ Fluoroscopy of Multiple Coronary Arteries using Low Osmolar Contrast (ICD-10-PCS; 2016-12-12)
PROC: B2151ZZ Fluoroscopy of Left Heart using Low Osmolar Contrast (ICD-10-PCS; 2016-12-12)
PROC: B3101ZZ Fluoroscopy of Thoracic Aorta using Low Osmolar Contrast (ICD-10-PCS; 2016-12-12)
PROC: B42FZZZ Computerized Tomography (CT Scan) of Right Lower Extremity Arteries (ICD-10-PCS; 2016-12-12)
DX: I25.10 Atherosclerotic heart disease of native coronary artery without angina pectoris (principal); N17.9 Acute kidney failure, unspecified; E11.9 Type 2 diabetes mellitus without complications; I50.22 Chronic systolic (congestive) heart failure; R55 Syncope and collapse; I25.2 Old myocardial infarction; I10 Essential (primary) hypertension; E78.5 Hyperlipidemia, unspecified; I49.3 Ventricular premature depolarization; K21.9 Gastro-esophageal reflux disease without esophagitis
CPT/HCPCS: 71010; 80048; 81001; 82948; 83735; 83880; 84484; 85025; 93005; 93225; 93226; 93454; 93567; 93880; 94150; 96372; C1760; C1769; C1887; C1893; G0269; J0690; J1644; J1815; J2250; J3010; Q9967